=== PATIENT | female | born 1995 | race African-American/Black ===

== ENCOUNTER → 2021-02-23 16:07 | Outpatient (CLI) | payer OTHER, SELFPAY ==
--- NOTE | 2021-02-23 | DI.US.S_ITS ---
PROCEDURE: US OB <= 14 WEEKS FETUS INDICATIONS: Size and Dates OUTSIDE/PRIOR DATING DATA: Last menstrual period (LMP): 12/22/2020 LMP-based estimated date of delivery (RODRIGO): 09/28/2021. First dating scan (date and location): 02/23/2021. Estimated date of delivery (RODRIGO) from first dating scan: 07/21/2021. TECHNIQUE: Real-time scanning was performed of the fetus and maternal pelvic organs, with image documentation. Endovaginal scanning was also performed to better visualize the fetus and maternal ovaries. COMPARISON: None. FINDINGS: Embryo: Selz-rump length measures 3.3 cm corresponding to 10 weeks 1 day. Heart rate measures 173 beats per minute. Measurement variability in dating: +/- 4 weeks by LMP, +/- 7 days by mean sac diameter (use before 6 weeks gestation if crown-rump length not able to be measured), +/- 5 days by crown-rump length (up to 8 weeks 6 days gestation), +/- 7 days by crown-rump length (up to 13 weeks 6 days gestation). Maternal organs: Left ovary not visualized. Right ovary within normal limits. IMPRESSION: 10 week 1 day single living IUP. Dictated by: Javier Lassiter RRA Interpreted: Lorri Cruz MD on 02/23/2021 at 16:43 Transcribed by: TENA on 02/23/2021 at 16:44 Approved by: Lorri Cruz M.D. on 02/23/2021 at 17:08
== END ==
PROVIDERS: PCP Family Medicine; Referring Provider Family Medicine; Visit Provider Family Medicine
DX: Z36.87 Encounter for antenatal screening for uncertain dates (principal); Z3A.10 10 weeks gestation of pregnancy
CPT/HCPCS: 76801

== ENCOUNTER → 2021-05-03 14:09 | Outpatient (CLI) | payer OTHER, SELFPAY ==
--- NOTE | 2021-05-03 | DI.US.S_ITS ---
PROCEDURE: US OB >= 14 WEEKS FETUS INDICATIONS: 20 WEEK ANATOMY SURVEY OUTSIDE/PRIOR DATING DATA: Last menstrual period (LMP): 12/22/2020. LMP-based estimated date of delivery (RDORIGO): 09/28/2021 . First dating scan (date and location): 02/23/2021 . Estimated date of delivery (RODRIGO) from first dating scan: 1 09/20/2021 . TECHNIQUE: Real-time scanning was performed of the fetus, with image documentation and biometric measurements. Endovaginal scanning: No COMPARISON: [facility], OB <= 14 WEEKS FETUS, 02/23/2021, 15:24. FINDINGS: General: A single living intrauterine gestation is present. Presentation: Vertex. Placenta: Placental position is posterior , without previa. Amniotic fluid index: 9.6 cm, normal range is 5-24 cm. heart rate: 163 beats per minute. Maternal cervical canal: 3.5 cm long. Normal lower limit is 2.5 cm. biometrics: Biparietal diameter: 19 weeks 4 days Head circumference: 19 weeks 4 days Abdominal circumference: 19 weeks 2 days Femur length: 18 weeks 5 days Estimated gestational age from initial scan: 20 weeks Composite gestational age from present scan: 19 weeks 2 Estimated weight and percentile: 273 g, 8th percentile Measurement variability for biometric dating: +/- 7 days from 14 weeks to 15 weeks 6 days gestation, +/- 10 days from 16 weeks to 21 weeks 6 days gestation, +/- 2 weeks from 22 weeks to 27 weeks 6 days gestation, +/- 3 weeks for 28 weeks gestation or later. weight reference: 4500 g or EFW >90/95% is considered macrosomia or large for gestational age. EFW <10% is small for gestational age. EFW 5% or less is considered intra-uterine growth restriction. Anatomic survey: Neuro: Ventricles are non-dilated at less than 10 mm. Cisterna magna is normal at 3-11 mm. Cerebellum is normal in size and morphology. Nuchal skin fold: Normal at less than 6 mm between 14-21 weeks gestational age. Face: Nose and lips, facial profile are normal. Spine: No evidence for spina bifida. Heart: 4-chambered heart is present, with normal ventricular outflow tracts. Diaphragm: Diaphragm is intact. Stomach: Left-sided stomach is present. Kidneys: No hydronephrosis. Normal is less than 5 mm in 2nd trimester, less than 7 mm in 3rd trimester. Cord: 3-vessel cord has orthotopic insertion. Bladder: Normal in size. Extremities: All 4 extremities identified. IMPRESSION: 1. Single living IUP redemonstrated and interval growth is less than expected with estimated weight at the 8th percentile for age. Follow-up recommended. 2. Normal anatomic survey. Dictated by: Javier Lassiter [facility] Interpreted: Chuck Pretty MD on 05/03/2021 at 15:26 Transcribed by: DONNELL on 05/03/2021 at 15:27 Approved by: Chuck Pretty M.D. on 05/03/2021 at 16:50
== END ==
PROVIDERS: Referring Provider Nurse Practitioner Obstetrics & Gynecology; Visit Provider Nurse Practitioner Obstetrics & Gynecology
DX: Z36.89 Encounter for other specified antenatal screening (principal); Z3A.19 19 weeks gestation of pregnancy
CPT/HCPCS: 76811

== ENCOUNTER → 2021-06-08 16:17 | Outpatient (CLI) | payer OTHER, SELFPAY ==
--- NOTE | 2021-06-08 | DI.US.S_ITS ---
PROCEDURE: US OB LIMITED INDICATIONS: SIZE LESS THAN DATES OUTSIDE/PRIOR DATING DATA: Last menstrual period (LMP): December 22, 2020 . LMP-based estimated date of delivery (RODRIGO): September 28, 2021. First dating scan (date and location): February 23, 2021 . Estimated date of delivery (RODRIGO) from first dating scan: September 20, 2021 . TECHNIQUE: Real-time scanning was performed of the fetus, with image documentation and biometric measurements. Endovaginal scanning: Not perform COMPARISON: None. FINDINGS: General: A single living intrauterine gestation is present. Presentation: Breech. Placenta: Placental position is posterior , without previa. Amniotic fluid index: 11.3 cm, normal range is 5-24 cm. heart rate: 163 beats per minute. Maternal cervical canal: 3.6 cm long. Normal lower limit is 2.5 cm. biometrics: Biparietal diameter: 5.6 cm, correlating with 23 weeks and 1 day Head circumference: 22.0 cm, correlating with 24 weeks and 0 days Abdominal circumference: 18.1 cm, correlating with 23 weeks and 0 days Femur length: 4.0 cm, correlating with 22 weeks and 6 days Composite gestational age from present scan: 23 weeks and 2 days versus 25 weeks and 1 day by initial ultrasound Estimated weight and percentile: [address] the fetus within the 1st percentile. Measurement variability for biometric dating: +/- 7 days from 14 weeks to 15 weeks 6 days gestation, +/- 10 days from 16 weeks to 21 weeks 6 days gestation, +/- 2 weeks from 22 weeks to 27 weeks 6 days gestation, +/- 3 weeks for 28 weeks gestation or later. weight reference: 4500 g or EFW >90/95% is considered macrosomia or large for gestational age. EFW <10% is small for gestational age. EFW 5% or less is considered intra-uterine growth restriction. Other: Limited evaluation of the anatomic structures appear unremarkable. Umbilical artery the S/D ratios measure within normal limits for gestational age with slight decreased in diastolic flow waveforms near cord insertion. IMPRESSION: 1. Single living intrauterine gestation with estimated sonographic gestational age of approximately 23 weeks 2 days versus approximately 25 weeks and 1 day based off initial ultrasound dating. 2. Estimated weight of 556 g which correlates with the 1st percentile based off gestational age. 3. S/D ratios measure within normal limits for gestational age with decreased diastolic flow waveform seen near the cord insertion. Recommend continued close clinical and imaging surveillance. Dictated by: Hao Nicole M.D. on 06/08/2021 at 20:09 Approved by: Hao Nicole M.D. on 06/08/2021 at 20:23
--- NOTE | 2021-12-10 10:59 | P.HPOB_ITS ---
OB HPI Date/Time Date of admission: 12/10/21 Date Patient Seen: 12/10/21 Time Patient Seen: 10:00 History of Present Condition Chief complaint: SIZE LESS THAN DATES : 2 Para: 1 Narrative: Celso Briseno is a 26 year old female [facility] Medical History (Updated 12/01/21 @ 18:31 by Naz Renteria MD) Blood transfusion affecting Social History (Updated 10/29/21 @ 16:28 by Maribel Page RN) marital status: number of children: 0 household members: spouse lives independently: Yes caregiver/support person: No housing: house pets and animals: No education level: college occupational status: employed 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: always water heater temp set < 120 deg: Yes (Will check) working smoke detector in home: Yes fire extinguisher in home: Yes carbon monox detector in home: Yes firearms in home: No do you feel safe at home: Yes Smoking Status: Never smoker second hand exposure: No alcohol intake: former (stopped with ) substance use type: does not use during the past year weight has: remained stable well-balanced diet: daily or most days daily servings fruits/ve-4 caffeine: No Type(s) of exercise: walking frequency: 5-6 times per week additional social history: Patient was adopted doesn't know any family history Meds Home Medications and Allergies Home Medications Medication Instructions Recorded Confirmed Type vits no.60-ferrous 1 tab PO DAILY 07/19/21 11/19/21 History fumarate 27 mg iron-folic acid 1 mg tablet aspirin 81 mg chewable tablet 81 mg PO DAILY 10/29/21 11/19/21 History Allergies Allergy/AdvReac Type Severity Reaction Status Date / Time Latex, Natural Rubber AdvReac Verified 11/19/21 09:25
== END ==
PROVIDERS: Referring Provider Nurse Practitioner Obstetrics & Gynecology; Visit Provider Nurse Practitioner Obstetrics & Gynecology
DX: O26.843 Uterine size-date discrepancy, third trimester (principal); Z3A.25 25 weeks gestation of pregnancy
CPT/HCPCS: 76815

== ENCOUNTER 2021-07-19 08:34 | Inpatient (IN) | payer OTHER, SELFPAY ==
--- NOTE | 2021-07-19 08:43 | DI.US.S_ITS ---
PROCEDURE: US OB LIMITED INDICATIONS: BLEEDING; LOW HEART RATE OUTSIDE/PRIOR DATING DATA: Last menstrual period (LMP): 12/22/20 . LMP-based estimated date of delivery (RODRIGO): 09/28/21. First dating scan (date and location): 02/23/21 . Estimated date of delivery (RODRIGO) from first dating scan: 09/20/21 . TECHNIQUE: Real-time scanning was performed of the fetus, with image documentation. Endovaginal scanning: No COMPARISON: [facility], US OB LIMITED, 06/08/2021, 16:45. FINDINGS: Intrauterine gestation is present in vertex presentation. There is no cardiac activity detected. The posterior placenta is avascular. IMPRESSION: 1. demise at 31 weeks 0 days. 2. Results were given by the technologist to the care providers attending the patient. Dictated by: Scarlett Seals M.D. on 07/19/2021 at 9:25 Approved by: Scarlett Seals M.D. on 07/19/2021 at 9:37
--- NOTE | 2021-07-19 10:17 | P.HPOB_ITS ---
OB HPI Date/Time Date of admission: 07/19/21 Date Patient Seen: 07/19/21 Time Patient Seen: 10:17 History of Present Condition Chief complaint: Vaginal Bleeding with IUFD : 1 Para: 0 Estimated Date of Delivery: 09/26/21 Estimated Gestational Age (weeks): 30 Narrative: Celso Briseno is a 26 year old female @ [id number] by [facility] dating who came in for evaluation of mild cramping and vaginal bleeding. Passed one large clot this morning while going to the bathroom. Has continued to have small amounts of bleeding since. Feeling occasional mild cramping, more comfortable standing, than sitting. Thought she felt FM earlier this morning. No headache, vision changes, RUQ pain or edema. PN care w/ CNM complicated by SGA growth, was referred to [facility] who changed her due date and reported normal growth and dopplers @ 26wks. History of Present care: good care, initiated at week # (10) and number of visits (4 (+ MFM consult at 26 weeks)) Obstetrical complications: growth restriction (MFM consulted, dates adjusted and FGR not identified based on new dates) Medical complications: none Preadmission Labs Blood type: A (+) positive -: Antibody screen: negative, Cystic fibrosis screen: negative, GBS status: unknown, HBsAG: negative, HIV: negative and RPR/VDLR: negative -: Chlamydia screen: not detected and Gonorrhea screen: not detected -: Rubella: immune and Varicella: immune HCT: 31.9 HCAB: negative Cell-free DNA: Negative/male 1 hr GTT: 121 Evaluation Evaluation Cervical dilation (cm): 0 Cervical effacement (%): 50 station: -3 Comments: No cardiac activity by ultrasound Meds Home Medications and Allergies Home Medications Medication Instructions Recorded Confirmed Type ferrous sulfate 07/19/21 History vits no.60-ferrous tab 07/19/21 History fumarate 27 mg iron-folic acid 1 mg tablet Allergies Allergy/AdvReac Type Severity Reaction Status Date / Time Latex, Natural Rubber AdvReac Verified 07/19/21 10:53 Review of Systems Review of Systems ROS: Yes All systems reviewed with the patient and are negative except as otherwise documented Exam Vital Signs (past 8 hours): 151/94mmHg, HR 111bpm, T 36.6C Temporal Resp Auscultation: clear to auscultation bilaterally Cardio Rate: regular rate Rhythm: regular rhythm Heart Sounds: S1 normal and S2 normal Presentation: vertex Objective Labs Result Diagrams: 07/19/21 10:40 07/19/21 10:40 Assessment and Plan Assessment and Plan Assessment and Plan narrative: A: Intrauterine demise @ [id number] Anemia Elevated blood pressure without diagnosis of HTN Suspected abruption P: Admit with routine labs and preeclampsia panel. Consultation to OB/. Will treat and refer if pressures become severe range, though suspected to be elevated from stress/emotional state. Will continue to closely monitor BP and vaginal bleeding. IOL consent signed and oral misoprostil ordered, per 's recommended dosing. Time Spent with Patient Total time spent with greater than 50% in coordination of care (as documented) at patient's floor/unit and/or counseling patient:: Greater than 35 minutes
[2021-07-19 10:57] LABS: Add Manual Diff / Slide Review NO; Basophils Absolute Auto 100 /uL (0-100); Basophils Percent Auto 0.4 % (0-2); Eosinophils Absolute Auto 0 /uL (0-450); Eosinophils Percent Auto 0.2 % (2-4); Hematocrit 30.6 % (36-46); Hemoglobin 10.1 g/dL (12.0-16.0); Lymphocytes Absolute Auto 1600 /uL (1100-4500); Lymphocytes Percent Auto 9.4 % (25-40); Mean Corpuscular Hemoglobin 32.5 PG (26-34); Mean Corpuscular Volume 98.6 fL (80-100); Monocytes Absolute Auto 900 /uL (0-900); Monocytes Percent Auto 5.4 % (3-14); Neutrophils Absolute Auto 14000 /uL (1500-7000); Neutrophils Percent Auto 84.6 % (50-75); Platelet Count 147 X10^3/uL (150-400); Red Cell Distribution Width 12.9 % (11.6-14.8); White Blood Cell Count 16.6 X10^3/uL (4.5-11.0)
[2021-07-19] MEDS: miSOPROStoL 200 MCG TABLET 800 MCG PO ×3 (11:03→18:27)
[2021-07-19] MEDS: ACETAMINOPHEN 325 MG TABLET 975 MG PO (11:05)
[2021-07-19] MEDS: IBUPROFEN 600 MG TABLET PO (11:05)
[2021-07-19 11:09] LABS: Aspartate Aminotransferase 45 IU/L (14-36); Blood Urea Nitrogen 10 mg/dL (7-17); Estimated Glomerular Filt Rate > 60.0 mL/min (>60); Uric Acid 3.8 mg/dL (2.5-6.2)
--- NOTE | 2021-07-19 11:44 | PM.OBPNLAB ---
Date/Time Date Patient Seen: 07/19/21 Time Patient Seen: 11:44 Pain Control Pain control: other Comments: Celso is feeling steadily increasing cramping pain and pelvic pressure. Has partner and family at bedside for support. Pain not well managed, feeling discomfort with cramping. Patient preferred oral medication for pain management, tylenol and ibuprofen taken but patient vomited whole pills, along with misoprostil. Discussed alternative pain management options, she tried nitrous oxide without relief and has requested an epidural. Continues to have vaginal bleeding. No headache, vision changes, or RUQ pain. Dr. Renteria/OB backup notified and on standby if bleeding increases. VS: 149/92mmHg, HR 97bpm Pelvic Exam Dilation (cm): 0 Effacement (%): 50 station: -3 Comments: CE unchanged QBL 200 mL since admission Assessment and Plan Comments: A: Intrauterine demise @ [id number] Anemia Elevated blood pressure without diagnosis of HTN Suspected abruption P: Epidural anesthesia for pain management now, will discuss next steps after pain better controlled. IV zofran for nausea and repeat dose oral cytotec. Continue to monitor BP and bleeding. plans to reassess for possible need for hysterotomy in 1-2 hours.
[2021-07-19 11:49] LABS: COVID19 - ADMIT (NP swab/PCR) Negative (Negative)
[2021-07-19] MEDS: ONDANSETRON 4 MG/2 ML INJ IV ×2 (11:55→18:56)
[2021-07-19] MEDS: LACTATED RINGERS 1,000 ML 100 ML IV ×2 (11:58→16:20)
[2021-07-19] MEDS: FENT 2MCG/ML BUPIV 0.125% EPI 200 MCG/100 ML PLAST..BAG 10 MCG EPIDURAL ×2 (12:30→19:49)
[2021-07-19 16:24] LABS: Appearance Urine UA CLOUDY; Bilirubin Urine UA NEGATIVE (NEGATIVE); Color Urine UA YELLOW; Glucose Urine UA NEGATIVE (Negative); Ketones Urine UA TRACE (NEGATIVE); Leukocyte Esterase Urine UA NEGATIVE (NEGATIVE); Nitrite Urine UA NEGATIVE (Negative); Occult Blood Urine UA 3+ (Negative); Protein Urine UA 3+ (Negative); Specific Gravity Urine UA 1.025 (1.000-1.035); Urobilinogen Urine UA 0.2 E.U./dL (0.2)
[2021-07-19 16:37] LABS: Amorphous Sediment Urine 3+; Bacteria Urine Many (>30); Culture Indicated Urine Specimen Cultured; Mucus Urine 2+ (Negative); RBC Urine 5-10/HPF (0-5/HPF); Renal Epithelial Cells Urine 0-1/HPF (0-1/HPF); Squamous Epithelial Cell Urine 1-5 /HPF (0-5/HPF); WBC Urine 5-10/HPF (0-5/HPF)
[2021-07-19 17:48] LABS: Creatinine Urine Random 385.2 mg/dL; Protein (Total) Urine Random 1685 mg/dL (0-12); Protein Creatinine Ratio Urine 4.37 GRAM/24H
--- NOTE | 2021-07-19 18:51 | PM.OBPNLAB ---
Date/Time Date Patient Seen: 07/19/21 Time Patient Seen: 18:51 Pain Control Pain control: epidural (Has used PCEA twice with good relief) Comments: Celso remains comfortable and is coping well with family support. Vaginal bleeding is scant with cumulative QBL 313mL since admission. 2nd dose of cytotec given at 1830. VS: BP 151/98mmHg, HR 93bpm, T 36.7C Temporal Pelvic Exam Dilation (cm): 0 Effacement (%): 50 station: -3 Comments: CE unchanged Assessment and Plan Assessment: induction ongoing and other (Preeclampsia) Plan: continuous present management Comments: Consulted about steadily increasing BPs and reviewed labs with her. Labetalol and nifedipine ordered, per . Will continue PO cytotec and plan Now I lay Me Down to Sleep Photography and keepsake box after delivery.
[2021-07-19] MEDS: LABETALOL 100 MG TABLET 200 MG PO (18:56)
[2021-07-19] MEDS: NIFEdipine 30 MG TAB ER PO (18:56)
[2021-07-19 19:51] VITALS: BP 154/96
--- NOTE | 2021-07-19 20:54 | PM.PN.1 ---
Subjective Subjective Date Patient Seen: 07/19/21 Time Patient Seen: 20:54 Exam Vital Signs (past 8 hours): - BP 167/85mmHg, HR 89bpm, T 37.4C Temporal Objective Labs Result Diagrams: 07/19/21 10:40 07/19/21 10:40 Labs: Laboratory Results - last 24 hr 07/19/21 07/19/21 07/19/21 10:40 10:40 10:40 WBC 16.6 H RBC 3.10 L Hgb 10.1 L Hct 30.6 L MCV 98.6 MCH 32.5 MCHC 33.0 RDW 12.9 Plt Count 147 L Neut % (Auto) 84.6 H Lymph % (Auto) 9.4 L [place] % (Auto) 5.4 Eos % (Auto) 0.2 L Baso % (Auto) 0.4 Neut # (Auto) 48095 H Lymph # (Auto) 1600 [place] # (Auto) 900 Eos # (Auto) 0 Baso # (Auto) 100 BUN Creatinine Estimated GFR BUN/Creatinine Ratio Uric Acid AST Urine Color Urine Appearance Urine pH Ur Specific [place] Urine Protein Urine Glucose (UA) Urine Ketones Urine Occult Blood Urine Nitrate Urine Bilirubin Urine Urobilinogen Ur Leukocyte Esterase Urine RBC Urine WBC Ur Squamous Epith Cells Ur Renal Epithelial Cell Amorphous Sediment Urine Bacteria Urine Mucus Ur Culture Indicated? U Random Total Protein Urine Creatinine Protein/Creatinin Ratio SARS-CoV-2 (PCR) Negative Blood Type A Positive Antibody Screen Negative 07/19/21 07/19/21 07/19/21 10:40 16:05 16:05 WBC RBC Hgb Hct MCV MCH MCHC RDW Plt Count Neut % (Auto) Lymph % (Auto) [place] % (Auto) Eos % (Auto) Baso % (Auto) Neut # (Auto) Lymph # (Auto) [place] # (Auto) Eos # (Auto) Baso # (Auto) BUN 10 Creatinine 0.50 L Estimated GFR > 60.0 BUN/Creatinine Ratio 20.0 Uric Acid 3.8 AST 45 H Urine Color Yellow Urine Appearance Cloudy Urine pH 5.0 Ur Specific [place] 1.025 Urine Protein 3+ H Urine Glucose (UA) Negative Urine Ketones Trace H Urine Occult Blood 3+ H Urine Nitrate Negative Urine Bilirubin Negative Urine Urobilinogen 0.2 Ur Leukocyte Esterase Negative Urine RBC 5-10/hpf H Urine WBC 5-10/hpf H Ur Squamous Epith Cells 1-5 /hpf Ur Renal Epithelial Cell 0-1/hpf Amorphous Sediment 3+ Urine Bacteria Many (>30) H Urine Mucus 2+ H Ur Culture Indicated? Specimen cultured U Random Total Protein 1685 H Urine Creatinine 385.2 Protein/Creatinin Ratio 4.37 SARS-CoV-2 (PCR) Blood Type Antibody Screen PFSH Social History Smoking Status: Never smoker Assessment & Plan Time Spent With Patient Critical Care time: I spent a total of [] minutes of critical care time on this patient's care today; this time is exclusive of procedural time.
[2021-07-19 21:04] VITALS: BP 156/87; PULSE 100
[2021-07-19] MEDS: HYDRALAZINE 20 MG/ML VIAL 5 MG IV (21:04)
[2021-07-19 21:24] LABS: Add Manual Diff / Slide Review NO; Basophils Absolute Auto 0 /uL (0-100); Basophils Percent Auto 0.2 % (0-2); Eosinophils Absolute Auto 0 /uL (0-450); Eosinophils Percent Auto 0.1 % (2-4); Hematocrit 23.6 % (36-46); Hemoglobin 7.8 g/dL (12.0-16.0); Lymphocytes Absolute Auto 1400 /uL (1100-4500); Lymphocytes Percent Auto 7.9 % (25-40); Mean Corpuscular HGB Conc 33.2 % (30-36); Mean Corpuscular Hemoglobin 32.6 PG (26-34); Mean Corpuscular Volume 98.3 fL (80-100); Monocytes Absolute Auto 1100 /uL (0-900); Neutrophils Absolute Auto 15300 /uL (1500-7000); Neutrophils Percent Auto 85.8 % (50-75); Platelet Count 107 X10^3/uL (150-400); Red Blood Cell Count 2.41 X10^6/uL (4.0-5.2); Red Cell Distribution Width 12.8 % (11.6-14.8); White Blood Cell Count 17.8 X10^3/uL (4.5-11.0)
[2021-07-19 21:28] LABS: Bilirubin Urine UA NEGATIVE (NEGATIVE); Color Urine UA YELLOW; Glucose Urine UA NEGATIVE (Negative); Ketones Urine UA NEGATIVE (NEGATIVE); Leukocyte Esterase Urine UA NEGATIVE (NEGATIVE); Nitrite Urine UA NEGATIVE (Negative); Occult Blood Urine UA 3+ (Negative); Protein Urine UA 2+ (Negative); Urobilinogen Urine UA 0.2 E.U./dL (0.2)
[2021-07-19 21:37] LABS: pH Urine UA 5.5 (4.5-8.0)
[2021-07-19 21:38] LABS: Amorphous Sediment Urine 2+; Appearance Urine UA CLOUDY; RBC Urine 10-30/HPF (0-5/HPF); WBC Urine 5-10/HPF (0-5/HPF)
[2021-07-19 21:39] LABS: Bacteria Urine Few (2-10); Culture Indicated Urine Cult Not Indicated; Granular Casts Urine 0-1/LPF; Hyaline Casts Urine 0-1/LPF; Mucus Urine 1+ (Negative); Squamous Epithelial Cell Urine 1-5 /HPF (0-5/HPF)
[2021-07-19 21:51] LABS: Aspartate Aminotransferase 66 IU/L (14-36); BUN Creatinine Ratio 17.2 (6-22); Blood Urea Nitrogen 11 mg/dL (7-17); Estimated Glomerular Filt Rate > 60.0 mL/min (>60)
[2021-07-19 21:52] LABS: Creatinine Urine Random 101.1 mg/dL
[2021-07-19] MEDS: MAGNESIUM SULFATE 4 GM/100 ML PIGGYBACK IV (21:58)
[2021-07-19 21:59] LABS: Protein (Total) Urine Random 313 mg/dL (0-12); Protein Creatinine Ratio Urine 3.09 GRAM/24H
--- NOTE | 2021-07-19 22:12 | P.PN_ITS ---
Subjective Subjective Date Patient Seen: 07/19/21 Time Patient Seen: 21:00 Interval history: Consulted with severe range BPs. Hydralazine 5mg IV given with good response. Repeat preeclampsia panel sent. Vaginal bleeding remains minimal. Celso remains comfortable with continuous epidural. Continues to deny headache and vision changes. Exam Vital Signs (past 8 hours): - 07/19/21 19:51 07/19/21 21:04 Pulse Rate 100 H Blood Pressure 154/96 H 156/87 H 2204: BP 134/71mmHg, HR 122bpm, T 37.4C Temporal Other: scant vaginal bleeding Objective Labs Result Diagrams: 07/19/21 21:17 07/19/21 21:17 Labs: Laboratory Results - last 24 hr 07/19/21 07/19/21 07/19/21 10:40 10:40 10:40 WBC 16.6 H RBC 3.10 L Hgb 10.1 L Hct 30.6 L MCV 98.6 MCH 32.5 MCHC 33.0 RDW 12.9 Plt Count 147 L Neut % (Auto) 84.6 H Lymph % (Auto) 9.4 L [place] % (Auto) 5.4 Eos % (Auto) 0.2 L Baso % (Auto) 0.4 Neut # (Auto) 80748 H Lymph # (Auto) 1600 [place] # (Auto) 900 Eos # (Auto) 0 Baso # (Auto) 100 BUN Creatinine Estimated GFR BUN/Creatinine Ratio Uric Acid AST Urine Color Urine Appearance Urine pH Ur Specific [place] Urine Protein Urine Glucose (UA) Urine Ketones Urine Occult Blood Urine Nitrate Urine Bilirubin Urine Urobilinogen Ur Leukocyte Esterase Urine RBC Urine WBC Ur Squamous Epith Cells Ur Renal Epithelial Cell Amorphous Sediment Urine Bacteria Hyaline Casts Granular Casts Urine Mucus Ur Culture Indicated? U Random Total Protein Urine Creatinine Protein/Creatinin Ratio SARS-CoV-2 (PCR) Negative Blood Type A Positive Antibody Screen Negative Crossmatch See Detail 07/19/21 07/19/21 07/19/21 10:40 16:05 16:05 WBC RBC Hgb Hct MCV MCH MCHC RDW Plt Count Neut % (Auto) Lymph % (Auto) [place] % (Auto) Eos % (Auto) Baso % (Auto) Neut # (Auto) Lymph # (Auto) [place] # (Auto) Eos # (Auto) Baso # (Auto) BUN 10 Creatinine 0.50 L Estimated GFR > 60.0 BUN/Creatinine Ratio 20.0 Uric Acid 3.8 AST 45 H Urine Color Yellow Urine Appearance Cloudy Urine pH 5.0 Ur Specific [place] 1.025 Urine Protein 3+ H Urine Glucose (UA) Negative Urine Ketones Trace H Urine Occult Blood 3+ H Urine Nitrate Negative Urine Bilirubin Negative Urine Urobilinogen 0.2 Ur Leukocyte Esterase Negative Urine RBC 5-10/hpf H Urine WBC 5-10/hpf H Ur Squamous Epith Cells 1-5 /hpf Ur Renal Epithelial Cell 0-1/hpf Amorphous Sediment 3+ Urine Bacteria Many (>30) H Hyaline Casts Granular Casts Urine Mucus 2+ H Ur Culture Indicated? Specimen cultured U Random Total Protein 1685 H Urine Creatinine 385.2 Protein/Creatinin Ratio 4.37 SARS-CoV-2 (PCR) Blood Type Antibody Screen Crossmatch 07/19/21 07/19/21 07/19/21 21:15 21:15 21:17 WBC 17.8 H RBC 2.41 L Hgb 7.8 L Hct 23.6 L MCV 98.3 MCH 32.6 MCHC 33.2 RDW 12.8 Plt Count 107 L Neut % (Auto) 85.8 H Lymph % (Auto) 7.9 L [place] % (Auto) 6.0 Eos % (Auto) 0.1 L Baso % (Auto) 0.2 Neut # (Auto) 93043 H Lymph # (Auto) 1400 [place] # (Auto) 1100 H Eos # (Auto) 0 Baso # (Auto) 0 BUN Creatinine Estimated GFR BUN/Creatinine Ratio Uric Acid AST Urine Color Yellow Urine Appearance Cloudy Urine pH 5.5 Ur Specific [place] 1.020 Urine Protein 2+ H Urine Glucose (UA) Negative Urine Ketones Negative Urine Occult Blood 3+ H Urine Nitrate Negative Urine Bilirubin Negative Urine Urobilinogen 0.2 Ur Leukocyte Esterase Negative Urine RBC 10-30/hpf H Urine WBC 5-10/hpf H Ur Squamous Epith Cells 1-5 /hpf Ur Renal Epithelial Cell Amorphous Sediment 2+ Urine Bacteria Few (2-10) H D Hyaline Casts 0-1/lpf Granular Casts 0-1/lpf Urine Mucus 1+ H Ur Culture Indicated? Cult not indicated U Random Total Protein 313 H Urine Creatinine 101.1 Protein/Creatinin Ratio 3.09 SARS-CoV-2 (PCR) Blood Type Antibody Screen Crossmatch 07/19/21 21:17 WBC RBC Hgb Hct MCV MCH MCHC RDW Plt Count Neut % (Auto) Lymph % (Auto) [place] % (Auto) Eos % (Auto) Baso % (Auto) Neut # (Auto) Lymph # (Auto) [place] # (Auto) Eos # (Auto) Baso # (Auto) BUN 11 Creatinine 0.64 Estimated GFR > 60.0 BUN/Creatinine Ratio 17.2 Uric Acid 4.0 AST 66 H Urine Color Urine Appearance Urine pH Ur Specific [place] Urine Protein Urine Glucose (UA) Urine Ketones Urine Occult Blood Urine Nitrate Urine Bilirubin Urine Urobilinogen Ur Leukocyte Esterase Urine RBC Urine WBC Ur Squamous Epith Cells Ur Renal Epithelial Cell Amorphous Sediment Urine Bacteria Hyaline Casts Granular Casts Urine Mucus Ur Culture Indicated? U Random Total Protein Urine Creatinine Protein/Creatinin Ratio SARS-CoV-2 (PCR) Blood Type Antibody Screen Crossmatch [facility] Social History Smoking Status: Never smoker Assessment & Plan Assessment and plan (1) Severe preeclampsia: Status: Acute Plan: Start MgSO4 4gm bolus and 2gm/hr maintenance. Mg level Q 6 hours. Counseled Celso on this diagnosis and what to expect with MgSO4. Will continue to monitor BPs closely. (2) demise in nash greater than 22 weeks gestation, antepartum: Status: Acute Plan: Per , repeat CBC @ 2330 and will deliver surgical if Hct continues to drop. Type & crossmatch 3 units of blood ordered. Requested platelets, but due to shortage they are unavailable to standby. Continuous care from [id number]. Time Spent With Patient Critical Care time: I spent a total of [] minutes of critical care time on this patient's care today; this time is exclusive of procedural time.
[2021-07-19] MEDS: MAGNESIUM SULFATE 20 GM/500 ML IV.SOLN IV (22:24)
[2021-07-19 23:56] LABS: Add Manual Diff / Slide Review NO; Basophils Absolute Auto 100 /uL (0-100); Basophils Percent Auto 0.4 % (0-2); Eosinophils Absolute Auto 0 /uL (0-450); Eosinophils Percent Auto 0.1 % (2-4); Hematocrit 23.9 % (36-46); Hemoglobin 7.9 g/dL (12.0-16.0); Lymphocytes Absolute Auto 1400 /uL (1100-4500); Lymphocytes Percent Auto 8.3 % (25-40); Mean Corpuscular Hemoglobin 32.8 PG (26-34); Mean Corpuscular Volume 99.4 fL (80-100); Monocytes Absolute Auto 800 /uL (0-900); Monocytes Percent Auto 4.9 % (3-14); Neutrophils Absolute Auto 14100 /uL (1500-7000); Neutrophils Percent Auto 86.3 % (50-75); Platelet Count 104 X10^3/uL (150-400); Red Blood Cell Count 2.41 X10^6/uL (4.0-5.2); Red Cell Distribution Width 12.9 % (11.6-14.8); White Blood Cell Count 16.3 X10^3/uL (4.5-11.0)
[2021-07-20] MEDS: miSOPROStoL 200 MCG TABLET 800 MCG PO ×3 (00:18→12:21)
[2021-07-20 04:20] LABS: Add Manual Diff / Slide Review NO; Basophils Absolute Auto 0 /uL (0-100); Basophils Percent Auto 0.3 % (0-2); Eosinophils Absolute Auto 0 /uL (0-450); Eosinophils Percent Auto 0.1 % (2-4); Hematocrit 24.9 % (36-46); Hemoglobin 8.2 g/dL (12.0-16.0); Lymphocytes Absolute Auto 1400 /uL (1100-4500); Mean Corpuscular Hemoglobin 32.6 PG (26-34); Mean Corpuscular Volume 98.8 fL (80-100); Monocytes Absolute Auto 1100 /uL (0-900); Monocytes Percent Auto 6.5 % (3-14); Neutrophils Absolute Auto 14600 /uL (1500-7000); Neutrophils Percent Auto 85.1 % (50-75); Platelet Count 118 X10^3/uL (150-400); Red Blood Cell Count 2.52 X10^6/uL (4.0-5.2); Red Cell Distribution Width 12.7 % (11.6-14.8); White Blood Cell Count 17.1 X10^3/uL (4.5-11.0)
[2021-07-20 04:30] LABS: Aspartate Aminotransferase 68 IU/L (14-36); BUN Creatinine Ratio 17.5 (6-22); Blood Urea Nitrogen 11 mg/dL (7-17); Estimated Glomerular Filt Rate > 60.0 mL/min (>60); Uric Acid 4.2 mg/dL (2.5-6.2)
[2021-07-20 04:42] LABS: Magnesium 6.2 mg/dL (1.6-2.3)
[2021-07-20] MEDS: FENT 2MCG/ML BUPIV 0.125% EPI 200 MCG/100 ML PLAST..BAG 10 MCG EPIDURAL ×3 (05:01→19:37)
--- NOTE | 2021-07-20 07:04 | PM.OBPNLAB ---
Date/Time Date Patient Seen: 07/20/21 Time Patient Seen: 04:30 Pain Control Pain control: epidural (coping well) Comments: Celso has been able to sleep through the night. Continues to deny headache and vision changes. Urine output has increased, vaginal bleeding remains scant and labs are stable with therapeutic Mg level. BP: 122/70mmHg, HR 111bpm, RR 16/min, T 36.7C Temporal Pelvic Exam Dilation (cm): 1 Effacement (%): 75 station: -3 Assessment and Plan Assessment: induction ongoing and other (Severe preeclampsia) Plan: continuous present management Comments: Continue cytotec Q6 hours. Repeat Mg level and preeclampsia panel Q6 hours. Will continue to monitor closely and consult OB, PRN.
[2021-07-20] MEDS: ONDANSETRON 4 MG/2 ML INJ IV ×2 (07:38→12:58)
[2021-07-20] MEDS: MAGNESIUM SULFATE 20 GM/500 ML IV.SOLN IV ×2 (08:33→18:14)
[2021-07-20] MEDS: LACTATED RINGERS 1,000 ML 100 ML IV ×2 (09:23→18:14)
--- NOTE | 2021-07-20 10:08 | PM.OBPNLAB ---
Date/Time Date Patient Seen: 07/20/21 Time Patient Seen: 10:09 Pain Control Pain control: epidural (tolerating well) Comments: has been able to rest comfortably and is agreeable to nguyen bulb placement, vaginal bleeding continues to be scant, denies neurologic symptoms. Partner at bedside and supportive. VS: BP 131/74 HR 108 T36.8 Pelvic Exam Dilation (cm): 1 Effacement (%): 60 station: -2 Comments: nguyen bulb placed manually and inflated with 60ml sterile water Contractions Date/Time contractions began: 4th dose of misoprostil given at 0640 Assessment and Plan Comments: Medical care transfered to Dr Jonas to manage BP and meds, CNM to continue labor management. Celso counseled on current plan and agreeable to co-management of care with Dr Jonas.
[2021-07-20 10:18] LABS: Add Manual Diff / Slide Review NO; Basophils Absolute Auto 0 /uL (0-100); Basophils Percent Auto 0.3 % (0-2); Eosinophils Absolute Auto 0 /uL (0-450); Eosinophils Percent Auto 0.1 % (2-4); Hematocrit 25.2 % (36-46); Hemoglobin 8.4 g/dL (12.0-16.0); Lymphocytes Absolute Auto 1300 /uL (1100-4500); Lymphocytes Percent Auto 6.8 % (25-40); Mean Corpuscular HGB Conc 33.3 % (30-36); Mean Corpuscular Volume 99.1 fL (80-100); Monocytes Absolute Auto 1200 /uL (0-900); Monocytes Percent Auto 6.2 % (3-14); Neutrophils Absolute Auto 16000 /uL (1500-7000); Neutrophils Percent Auto 86.6 % (50-75); Platelet Count 116 X10^3/uL (150-400); Red Blood Cell Count 2.55 X10^6/uL (4.0-5.2); Red Cell Distribution Width 12.8 % (11.6-14.8); White Blood Cell Count 18.5 X10^3/uL (4.5-11.0)
[2021-07-20 10:29] LABS: Aspartate Aminotransferase 63 IU/L (14-36); Blood Urea Nitrogen 11 mg/dL (7-17); Estimated Glomerular Filt Rate > 60.0 mL/min (>60); Uric Acid 4.1 mg/dL (2.5-6.2)
[2021-07-20 10:31] LABS: Magnesium 6.8 mg/dL (1.6-2.3)
--- NOTE | 2021-07-20 13:54 | PM.OBPNLAB ---
Date/Time Date Patient Seen: 07/20/21 Time Patient Seen: 13:30 Pain Control Pain control: epidural (replaced by anesthesia at this time) Pelvic Exam Dilation (cm): 4 Effacement (%): 75 station: -2 Comments: BBOW [place] balloon removed during exam Scant dark bleeding noted Assessment and Plan Assessment: induction ongoing Plan: continuous present management (Continue cytotec Q6 hours) Comments: Reassess in 4 hours or sooner, PRN
--- NOTE | 2021-07-20 17:31 | PM.OBPNLAB ---
Date/Time Date Patient Seen: 07/20/21 Time Patient Seen: 17:31 Pain Control Pain control: epidural Comments: Remains comfortable with PCEA use. VS: 143/88mmHg, HR 105bpm, RR 20/min, T 37.4C Pelvic Exam Dilation (cm): 4 Effacement (%): 75 station: -2 Amniotic membrane status: Ruptured (AROM) Comments: AROM, small amount of clear, blood tinged fluid Assessment and Plan Assessment: induction ongoing Plan: begin patient augmentation Comments: IOL progress reviewed with . AROM and pitocin started, per 's recommendation and Celso's consent. Reassess in 4 hours or sooner, PRN.
[2021-07-20] MEDS: OXYTOCIN PREMIX 30 UNIT/500 ML PLAST..BAG IV (17:46)
--- NOTE | 2021-07-21 00:47 | PM.OBPRVD ---
Events: Other (Perigestational hemorrhage, Intrauterine demise) Labor & Delivery Delivery date: 07/21/21 Intrapartal Events: Severe Preeclampsia Cervical ripening method: per misoprostal protocol (then Parisi balloon) Induction method: AROM Delivery augmentation: pitocin Delivery monitor: external uterine Route of delivery: Episiotomy description: None L&D Laceration Description: None Estimated blood loss (mL): 100 Anesthesia Type: Epidural Narrative: Celso reported rectal pressure with CE C/C/+2. With coaching and encouragement she steadily brought the head to . NSVB of a stillborn baby boy in RAMONA position over an intact perineum. Epidural anesthesia was adequate throughout the . There was no nuchal cord and the shoulders delivered easily. [place] was placed on a blanket. The cord was double clamped and cut by CNM. Remaining 30 units of pitocin in 500mL LR was increased to 300mL/hr for active management of third stage. Gentle cord traction was followed immediately by spontaneous, Schultze delivery of an intact placenta, membranes and 3VC. Fundus immediately firm and bleeding minimal. EBL 100mL. Baby was swaddled and placed in Jember's arms. Placenta to pathology. [place] Baby 1: Infant gender: Male Presentation: vertex Position: Right Occiput Anterior Placenta delivery description: Spontaneous Cord Vessel Description: 3 Vessels weight: 1.429 kg Narrative: known demise Plan for aftercare: Other ( management by OB/)
[2021-07-21] MEDS: KETOROLAC 30 MG/ML VIAL IV (01:19)
[2021-07-21] MEDS: ACETAMINOPHEN 325 MG TABLET 650 MG PO ×4 (01:20→18:54)
[2021-07-21 01:37] LABS: Magnesium 6.4 mg/dL (1.6-2.3)
[2021-07-21] MEDS: LOPERAMIDE 2 MG CAPSULE 4 MG PO (01:47)
[2021-07-21] MEDS: TRANEXAMIC ACID 1,000 MG in SODIUM CHLORIDE 0.9% 100 ML 200 ML IV (01:54)
[2021-07-21] MEDS: LACTATED RINGERS 1,000 ML 100 ML IV ×2 (05:31→15:46)
[2021-07-21] MEDS: MAGNESIUM SULFATE 20 GM/500 ML IV.SOLN IV ×2 (05:36→15:59)
[2021-07-21] MEDS: IBUPROFEN 600 MG TABLET PO ×3 (06:17→18:54)
[2021-07-21 06:35] LABS: Add Manual Diff / Slide Review NO; Basophils Absolute Auto 0 /uL (0-100); Eosinophils Absolute Auto 100 /uL (0-450); Eosinophils Percent Auto 0.3 % (2-4); Hemoglobin 7.7 g/dL (12.0-16.0); Lymphocytes Absolute Auto 1500 /uL (1100-4500); Lymphocytes Percent Auto 7.4 % (25-40); Mean Corpuscular HGB Conc 33.5 % (30-36); Mean Corpuscular Hemoglobin 32.9 PG (26-34); Mean Corpuscular Volume 98.2 fL (80-100); Monocytes Absolute Auto 1400 /uL (0-900); Monocytes Percent Auto 6.7 % (3-14); Neutrophils Absolute Auto 17400 /uL (1500-7000); Neutrophils Percent Auto 85.6 % (50-75); Platelet Count 115 X10^3/uL (150-400); Red Blood Cell Count 2.34 X10^6/uL (4.0-5.2); White Blood Cell Count 20.4 X10^3/uL (4.5-11.0)
[2021-07-21 06:51] LABS: Magnesium 6.9 mg/dL (1.6-2.3)
--- NOTE | 2021-07-21 08:13 | PATH_ITS ---
[facility] Accession Number: [id number] . 01 Material submitted: . placenta - PLACENTA . 02 Diagnosis: Placenta (266 grams): Three vessel umbilical cord with no evidence of funsitis. membranes with deciduitis; no evidence of chorioamnionitis. Features of maternal hypertensive vasculopathy not identified. No evidence of neoplasm. [facility] 07/25/2021 1558 Local . 02 Electronically signed: . Niranjan Mcdaniel MD, PhD, Pathologist NPI- [id number] . 01 Gross description: . The specimen is received in formalin, labeled placenta and consists of a 266-gram placenta measuring 14.0 x 13.0 x 3.5 cm. The cee, eccentrically inserted umbilical cord measures 43 cm in length by 1.2 cm in diameter and displays three vessels on cut surface. The cee-pink translucent membranes attach at the disc margin and the point of rupture is located 0.5 cm from the nearest margin. The cotyledons are intact and sectioned to reveal pink-red cut surfaces. Exhauster Engineer sections are submitted. Also received within the specimen container is a 9.0 x 6.0 x 3.0 cm portion of clotted blood. . A1: Umbilical cord. A2: Membrane rolls. A3-A4: Full thickness placental cross sections. A5: Maternal surface wedge sections. (EA:[id number]) /MRV 07/24/2021 1302 Local . 02 Pathologist provided ICD-10: O14.10 . 02 CPT . 283514 Performed at: 01 [facility] [address] [place] [address], [place], [place] [id number] MD Altaf Gomez MD Phone: [phone] Performed at: 02 [facility] [address] [place] [id number] MD Cate Pradhan MD Phone: [phone]
--- NOTE | 2021-07-21 09:32 | PM.CN ---
History of Present Illness Consult details Date Patient Seen: 07/21/21 Time Patient Seen: 09:32 Chief complaint: Vaginal Bleeding with IUFD Reason for consult: Severe preeclampsia Requesting provider: Teresa He Narrative: Patient is a 26-year-old 1 now para 1 status post vaginal delivery of a intrauterine demise, male at 30 weeks gestation. Initially it was presumed abruption but patient began developing evidence of severe preeclampsia and was started on magnesium sulfate. Patient has significantly labile blood pressures and initially was treated with labetalol, nifedipine. Patient received an epidural catheter for pain control and blood pressures did not warrant further antihypertensive medication. Patient initially was anemic but remained stable with stable platelet count even . After delivery no specific evidence for cause for demise seen. There was no nuchal cord or knot in the cord. Amniotic fluid was pink tinge and although the patient presented with vaginal bleeding no evidence for abruption. Patient had had a cell free DNA that showed a normal male. She had been evaluated by Maternal Medicine at 26 weeks for SGA infant and at that time was found to have normal Dopplers and they changed her due date. She was to follow-up in 1 month for evaluation of growth however the demise happened before that follow-up appointment. Meds Home Medications and Allergies Home Medications Medication Instructions Recorded Confirmed Type ferrous sulfate 07/19/21 History vits no.60-ferrous tab 07/19/21 History fumarate 27 mg iron-folic acid 1 mg tablet Allergies Allergy/AdvReac Type Severity Reaction Status Date / Time Latex, Natural Rubber AdvReac Verified 07/19/21 10:53 Review of Systems Review of Systems Narrative: Patient denies headaches, scotomata, epigastric pain. She is feeling fatigued from the magnesium but is able to ambulate. She is urinating well. Mild bleeding. Exam Vital Signs (past 8 hours): Blood pressures ranging from 155/96 to 124/77 with the majority of blood pressures in the low 90 to high 80 diastolic. No systolics over 155. Patient's temperature 36.4?. Excellent urine output. Narrative Exam Narrative: Patient is sitting up at the side of the bed in no apparent distress. No significant edema of the legs. Objective Labs Result Diagrams: 07/21/21 06:13 07/20/21 10:12 Labs: Laboratory Results - last 24 hr 07/20/21 07/20/21 07/20/21 10:12 10:12 18:09 WBC 18.5 H RBC 2.55 L Hgb 8.4 L Hct 25.2 L MCV 99.1 MCH 33.0 MCHC 33.3 RDW 12.8 Plt Count 116 L Neut % (Auto) 86.6 H Lymph % (Auto) 6.8 L [place] % (Auto) 6.2 Eos % (Auto) 0.1 L Baso % (Auto) 0.3 Neut # (Auto) 96899 H Lymph # (Auto) 1300 [place] # (Auto) 1200 H Eos # (Auto) 0 Baso # (Auto) 0 BUN 11 Creatinine 0.61 Estimated GFR > 60.0 BUN/Creatinine Ratio 18.0 Uric Acid 4.1 Magnesium 6.8 H* 7.0 H* AST 63 H 07/21/21 07/21/21 07/21/21 01:14 06:13 06:13 WBC 20.4 H RBC 2.34 L Hgb 7.7 L Hct 23.0 L MCV 98.2 MCH 32.9 MCHC 33.5 RDW 13.0 Plt Count 115 L Neut % (Auto) 85.6 H Lymph % (Auto) 7.4 L [place] % (Auto) 6.7 Eos % (Auto) 0.3 L Baso % (Auto) 0.0 Neut # (Auto) 80256 H Lymph # (Auto) 1500 [place] # (Auto) 1400 H Eos # (Auto) 100 Baso # (Auto) 0 BUN Creatinine Estimated GFR BUN/Creatinine Ratio Uric Acid Magnesium 6.4 H* 6.9 H* AST PFSH Social History marital status: number of children: 0 household members: spouse lives independently: Yes caregiver/support person: No education level: college occupational status: employed 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/hazards: No Tobacco & Substance Use Smoking Status: Never smoker Assessment & Plan Assessment and plan (1) demise in nash greater than 22 weeks gestation, antepartum: Status: Acute (2) Severe preeclampsia: Status: Acute (3) Anemia affecting : Status: Acute Assessment & Plan narrative: Agree with IV iron therapy for anemia. Continue magnesium sulfate until midnight tonight, 24 hours after delivery unless further severe preeclampsia symptoms develop. Placenta sent to pathology as well as order for Jett Garay. Due to the labile blood pressures will start the patient on labetalol 100 mg b.i.d. Time Spent With Patient Time with patient: less than 30 minutes Critical Care time: I spent a total of [] minutes of critical care time on this patient's care today; this time is exclusive of procedural time.
[2021-07-21] MEDS: LABETALOL 100 MG TABLET PO ×2 (10:10→21:50)
[2021-07-21] MEDS: IRON SUCROSE 200 MG in SODIUM CHLORIDE 0.9% 100 ML 220 ML IV (10:39)
[2021-07-21 16:15] LABS: Magnesium 6.7 mg/dL (1.6-2.3)
[2021-07-21 21:50] VITALS: BP 128/77; PULSE 104
[2021-07-22] VITALS (7 sets, daily range): BP systolic 133–141; BP diastolic 72–80; PULSE 88–97; RESP 11–12; TEMP 36.3–37
[2021-07-22] MEDS: IBUPROFEN 600 MG TABLET PO ×3 (01:16→14:28)
[2021-07-22] MEDS: ACETAMINOPHEN 325 MG TABLET 650 MG PO ×3 (01:16→13:44)
[2021-07-22 06:39] LABS: Alanine Aminotransferase 24 IU/L (<35); Albumin 2.3 g/dL (3.5-5.0); Alkaline Phosphatase 218 U/L (38-126); Aspartate Aminotransferase 30 IU/L (14-36); Bilirubin Unconjugated 0.1 mg/dL (0.0-1.1); Globulin 2.2 g/dL (1.7-4.1); HEMOLYSIS < 15 (0-50); Total Protein 4.5 g/dL (6.3-8.2)
[2021-07-22 06:41] LABS: Add Manual Diff / Slide Review NO; Basophils Absolute Auto 0 /uL (0-100); Basophils Percent Auto 0.1 % (0-2); Eosinophils Absolute Auto 100 /uL (0-450); Eosinophils Percent Auto 0.9 % (2-4); Lymphocytes Absolute Auto 1400 /uL (1100-4500); Lymphocytes Percent Auto 10.8 % (25-40); Mean Corpuscular HGB Conc 33.2 % (30-36); Mean Corpuscular Hemoglobin 32.9 PG (26-34); Mean Corpuscular Volume 99.2 fL (80-100); Monocytes Absolute Auto 800 /uL (0-900); Monocytes Percent Auto 6.5 % (3-14); Neutrophils Absolute Auto 10200 /uL (1500-7000); Neutrophils Percent Auto 81.7 % (50-75); Platelet Count 117 X10^3/uL (150-400); Red Blood Cell Count 1.82 X10^6/uL (4.0-5.2); Red Cell Distribution Width 13.2 % (11.6-14.8); White Blood Cell Count 12.5 X10^3/uL (4.5-11.0)
[2021-07-22 06:42] LABS: Hematocrit 18.1 % (36-46)
[2021-07-22 06:56] LABS: Bilirubin Total < 0.1 mg/dL (0.2-1.3)
[2021-07-22] MEDS: IRON SUCROSE 300 MG in SODIUM CHLORIDE 0.9% 100 ML 76.667 ML IV (08:02)
[2021-07-22] MEDS: LABETALOL 100 MG TABLET PO (08:34)
[2021-07-22] MEDS: diphenhydrAMINE 25 MG TABLET PO (09:28)
--- NOTE | 2021-07-22 09:50 | P.PNOB_ITS ---
Subjective - OB Subjective Patient comments: no complaints [place] baby status: stillbirth Date Patient Seen: 07/22/21 Time Patient Seen: 09:51 Interval history: delivery stillbirth at 30 weeks with severe p reeclampsia. Patient has been off of magnesium for approximately 10 hours. She is starting to feel normal. No headaches, scotomata, epigastric pain. She is ambulatory. Exam Vital Signs (past 8 hours): - Blood pressure 141/82 and 118/76 07/22/21 08:34 Pulse Rate 94 H Blood Pressure 141/72 H Narrative Exam Narrative: Abdomen is soft, nontender. Extremities without edema and nontender. DTRs are normal. Objective Labs Result Diagrams: 07/22/21 06:04 07/20/21 10:12 Labs: Laboratory Results - last 24 hr 07/19/21 07/21/21 07/22/21 10:40 15:40 06:04 WBC RBC Hgb Hct MCV MCH MCHC RDW Plt Count Neut % (Auto) Lymph % (Auto) [place] % (Auto) Eos % (Auto) Baso % (Auto) Neut # (Auto) Lymph # (Auto) [place] # (Auto) Eos # (Auto) Baso # (Auto) Magnesium 6.7 H* Total Bilirubin < 0.1 L Conjugated Bilirubin 0.0 Unconjugated Bilirubin 0.1 AST 30 ALT 24 Alkaline Phosphatase 218 H Total Protein 4.5 L Albumin 2.3 L Globulin 2.2 Albumin/Globulin Ratio 1.0 Blood Type A Positive Antibody Screen Negative Crossmatch See Detail 07/22/21 06:04 WBC 12.5 H RBC 1.82 L Hgb 6.0 L* Hct 18.1 L* MCV 99.2 MCH 32.9 MCHC 33.2 RDW 13.2 Plt Count 117 L Neut % (Auto) 81.7 H Lymph % (Auto) 10.8 L [place] % (Auto) 6.5 Eos % (Auto) 0.9 L Baso % (Auto) 0.1 Neut # (Auto) 44196 H Lymph # (Auto) 1400 [place]illespie # (Auto) 800 Eos # (Auto) 100 Baso # (Auto) 0 Magnesium Total Bilirubin Conjugated Bilirubin Unconjugated Bilirubin AST ALT Alkaline Phosphatase Total Protein Albumin Globulin Albumin/Globulin Ratio Blood Type Antibody Screen Crossmatch Assessment & Plan Assessment and Plan (1) demise in nash greater than 22 weeks gestation, antepartum: Status: Acute (2) Severe preeclampsia: Status: Acute (3) Anemia affecting : Status: Acute Plan day: 2 Comments: Due to patient's significant anemia will transfuse 2 units of packed red blood cells. If she continues to do well off the magnesium possible home later today. Time Spent With Patient Time: Total time spent is greater than 50% in coordination of care (as documented) at patient's floor/unit and/or counseling patient: Time with patient: less than 15 minutes
--- NOTE | 2021-07-22 16:06 | P.DS_ITS ---
Discharge Providers Provider Date of admission: 07/19/21 08:34 Discharge Date: 07/22/21 Consults: 07/19/21 09:49 Consult to Anesthesiology Urgent Comment: Consulting Provider: Anesthesiologist Reason for consultation: analgesia for IUFD LABOR Has provider been notified: No 07/22/21 00:43 Consult to Endoscopy Specialty Technician Routine Comment: Discharge provider: Kate Jonas MD Summary Hospital Course Date Patient Seen: 07/22/21 Time Patient Seen: 16:09 Diagnoses: Vaginal delivery of 30 week demise, severe preeclampsia, anemia requiring blood transfusion Hospital Course: Patient arrived on Labor and delivery with vaginal bleeding and pain. It was discovered that she had a intrauterine demise. She was induced with prostaglandins and Pitocin and received an epidural catheter for pain control. She was placed on IV magnesium sulfate for seizure prevention. She had a sponta neous vaginal delivery of a male . She was kept on IV magnesium sulfate for 24 hours post delivery. She was started on labetalol 100 mg b.i.d. to control blood pressure. Patient's hematocrit decreased significantly so she was transfused 2 units of packed red blood cells. Is urinating and ambulating well. No nausea. Normal vaginal bleeding. No headaches, scotomata, epigastric pain. Peripartum Data Infant Delivery Method: Natural Vaginal Laceration Description: None complications: transfusion [place] 1: Gender: Male Disposition of : Discharge Diagnosis (1) demise in nash greater than 22 weeks gestation, antepartum: Status: Acute (2) Severe preeclampsia: Status: Acute (3) Anemia affecting : Status: Acute Status at Discharge Cognitive/behavioral status at discharge: oriented Functional status at discharge: independent ambulation Overall status at discharge: patient is progressing back to baseline Time Spent with Patient Time attestation: Total time spent providing and/or coordinating discharge services: Time spent: Less than 30 minutes Objective Labs Result Diagrams: 07/22/21 06:04 07/20/21 10:12 Labs: Laboratory Results - last 24 hr 07/19/21 07/21/21 07/22/21 10:40 15:40 06:04 WBC RBC Hgb Hct MCV MCH MCHC RDW Plt Count Neut % (Auto) Lymph % (Auto) Delta % (Auto) Eos % (Auto) Baso % (Auto) Neut # (Auto) Lymph # (Auto) Delta # (Auto) Eos # (Auto) Baso # (Auto) Magnesium 6.7 H* Total Bilirubin < 0.1 L Conjugated Bilirubin 0.0 Unconjugated Bilirubin 0.1 AST 30 ALT 24 Alkaline Phosphatase 218 H Total Protein 4.5 L Albumin 2.3 L Globulin 2.2 Albumin/Globulin Ratio 1.0 Blood Type A Positive Antibody Screen Negative Crossmatch See Detail 07/22/21 06:04 WBC 12.5 H RBC 1.82 L Hgb 6.0 L* Hct 18.1 L* MCV 99.2 MCH 32.9 MCHC 33.2 RDW 13.2 Plt Count 117 L Neut % (Auto) 81.7 H Lymph % (Auto) 10.8 L Delta % (Auto) 6.5 Eos % (Auto) 0.9 L Baso % (Auto) 0.1 Neut # (Auto) 58144 H Lymph # (Auto) 1400 Delta # (Auto) 800 Eos # (Auto) 100 Baso # (Auto) 0 Magnesium Total Bilirubin Conjugated Bilirubin Unconjugated Bilirubin AST ALT Alkaline Phosphatase Total Protein Albumin Globulin Albumin/Globulin Ratio Blood Type Antibody Screen Crossmatch Exam Vital Signs (past 8 hours): - 07/22/21 08:34 07/22/21 09:57 07/22/21 10:21 Temperature 97.4 F L 98.5 F Pulse Rate 94 H 92 H 97 H Respiratory Rate 12 11 L Blood Pressure 141/72 H 136/73 133/75 07/22/21 13:17 07/22/21 13:26 07/22/21 13:30 Temperature 98.6 F 98.6 F 98.6 F Pulse Rate 88 88 88 Respiratory Rate 12 12 12 Blood Pressure 134/73 134/73 134/73 07/22/21 13:45 Temperature 98.2 F Pulse Rate 94 H Respiratory Rate 12 Blood Pressure 138/80 Narrative Exam Narrative: Patient's abdomen is soft, nontender. Uterus is firm, mild tenderness, 2 finger breaths below the umbilicus. Mild lochia. Extremities without edema and nontender. Normal DTRs. Discharge Plan Discharge Plan Patient Disposition: Home Discharge orders & Medications Prescriptions: New labetalol 100 mg Tablet 100 mg PO BID Qty: 30 RF: 0 Continued vit 60-iron fum-folic 27 mg iron- 1 mg Tablet 1 tab PO DAILY RF: 0 ferrous sulfate 325 mg 325 mg PO DAILY RF: 0 Follow up/Referrals: Kate Jonas MD [Physician] - 07/24/21 (Blood pressure check with Dr Jonas on Friday at 10:15am appointment with Teresa: telehealth 08/02 at 3pm in office visit 08/24 at 2pm) Diet/Activity/Treatments Diet: Regular Activity: Nothing in vagina for 4 weeks. Walking but no extensive physical activity until cleared by the doctor Skin/Wound/Dressing Care Report to your healthcare provider any signs of infection, such as:: chills, fe anna and increased pain Visit Report/Discharge Packet Stand Alone Forms: Discharge: Care Discharge Data Attending Provider: Teresa He
--- NOTE | 2021-07-26 08:49 | PC.NURSE ---
Late Entry: 2nd bag of PRBCs scanned and verified at the time of administration but documentation not saved
== END 2021-07-22 16:40 | disposition home or self-care (01) | DRG 807 ==
PROVIDERS: Specialist; Admitting Provider Nurse Practitioner Obstetrics & Gynecology; Referring Provider Nurse Practitioner Obstetrics & Gynecology; Visit Provider Nurse Practitioner Obstetrics & Gynecology
DX: O14.14 Severe pre-eclampsia complicating childbirth (principal); Z37.1 Single stillbirth; O67.8 Other intrapartum hemorrhage; Z3A.30 30 weeks gestation of pregnancy; O36.5930 Maternal care for other known or suspected poor fetal growth, third trimester, not applicable or unspecified; Z20.822 Contact with and (suspected) exposure to COVID-19; O99.02 Anemia complicating childbirth; D64.9 Anemia, unspecified
CPT/HCPCS: 01967; 36415; 36430; 59050; 59200; 76815; 80076; 81001; 81003; 81015; 82570; 83735; 84156; 84450; 84550; 85025; 85460; 86850; 86900; 86901; 87086; 87635; 99252; C9803; G0378; P9016; G0379; J0360; J1756; J1885; J2405; J2590; J3475; S0191

== ENCOUNTER → 2021-10-31 13:33 | Outpatient (ROUT) | payer OTHER, SELFPAY ==
[2021-10-31 16:23] LABS: Urine N gonorrhoeae NOT DETECTED
[2021-10-31 16:40] LABS: Urine Chlamydia NOT DETECTED
== END ==
PROVIDERS: Visit Provider Obstetrics & Gynecology
DX: Z34.81 Encounter for supervision of other normal pregnancy, first trimester (principal); Z3A.10 10 weeks gestation of pregnancy
CPT/HCPCS: 87491; 87591

== ENCOUNTER → 2022-01-15 08:55 | Outpatient (CLI) | payer OTHER, SELFPAY ==
[2022-01-15 09:17] LABS: Specimen Label NATERA
[2022-01-17 22:05] LABS: AFP Value 73.1 ng/mL (.); Gestational Age Ultrasound (.); Insulin Dep Diabetes No (.); OSBR Risk 1IN 10000 (.); Results Report (.); Test Results *Screen Negative* (.)
== END ==
PROVIDERS: Referring Provider Obstetrics & Gynecology; Visit Provider Obstetrics & Gynecology
DX: Z34.82 Encounter for supervision of other normal pregnancy, second trimester (principal); Z3A.19 19 weeks gestation of pregnancy
CPT/HCPCS: 36415; 82105

== ENCOUNTER → 2022-03-09 09:30 | Outpatient (CLI) | payer OTHER, SELFPAY ==
[2022-03-09 11:15] LABS: Hematocrit 32.4 % (36-46); Hemoglobin 11.4 g/dL (12.0-16.0)
[2022-03-09 11:28] LABS: GTT (PREG) 1 Hour PP 50gm Dose 98 mg/dL (76-139)
== END ==
PROVIDERS: Referring Provider Obstetrics & Gynecology; Visit Provider Obstetrics & Gynecology
DX: Z34.82 Encounter for supervision of other normal pregnancy, second trimester (principal); Z3A.26 26 weeks gestation of pregnancy
CPT/HCPCS: 36415; 82950; 85014; 85018

== ENCOUNTER 2022-03-18 14:56 | Outpatient (CLI) | payer OTHER, SELFPAY | END 2022-03-18 16:10 | disposition home or self-care (01) | LOC: LABOR 15:05 → OB 03-20 13:16 | PROVIDERS: PCP Obstetrics & Gynecology; Referring Provider Obstetrics & Gynecology; Visit Provider Obstetrics & Gynecology | DX: O09.213 Supervision of pregnancy with history of pre-term labor, third trimester (principal); Z3A.28 28 weeks gestation of pregnancy; Z87.59 Personal history of other complications of pregnancy, childbirth and the puerperium | CPT/HCPCS: 59025; G0378; G0379 ==

== ENCOUNTER 2022-03-25 08:47 | Outpatient (CLI) | payer OTHER, SELFPAY ==
--- NOTE | 2022-03-25 10:29 | PM.OBTRLD ---
Visit Information Visit Information Date of evaluation: 03/25/22 Primary OB Provider: Naz Renteria On-call OB Provider: Kate Jonas Reason for Evaluation: Yes non-stress test non-stress test reason: other (History of 33 week demise) [facility] Medical History (Updated 03/25/22 @ 10:31 by Kate Jonas MD) Blood transfusion affecting Social History (Updated 10/29/21 @ 16:28 by Maribel Page RN) marital status: number of children: 0 household members: spouse lives independently: Yes caregiver/support person: No housing: house pets and animals: No education level: college occupational status: employed 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: always water heater temp set < 120 deg: Yes (Will check) working smoke detector in home: Yes fire extinguisher in home: Yes carbon monox detector in home: Yes firearms in home: No do you feel safe at home: Yes Smoking Status: Never smoker second hand exposure: No alcohol intake: former (stopped with ) substance use type: does not use during the past year weight has: remained stable well-balanced diet: daily or most days daily servings fruits/ve-4 caffeine: No Type(s) of exercise: walking frequency: 5-6 times per week additional social history: Patient was adopted doesn't know any family history Evaluation Evaluation Baseline heart rate: 150 Variability: Moderate (11-25) monitor accelerations: Present Monitor Decelerations: Absent Category of Tracing: Appropriate for gestational age Comments: Some initial uterine irritability resolved with patient emptying her bladder. Diagnosis, Plan/Disposition Final Diagnosis (1) 28 weeks gestation of : Status: Acute (2) High risk due to history of previous obstetrical problem in third trimester: Status: Acute Plan/Disposition Plan: Reassuring nonstress test. Continue weekly nonstress tests and OB visits. OB Disposition: home
== END 2022-03-25 10:38 | disposition home or self-care (01) ==
LOC: LABOR 09:13 → OB 03-27 09:05
PROVIDERS: Referring Provider Obstetrics & Gynecology; Visit Provider Obstetrics & Gynecology
DX: O09.293 Supervision of pregnancy with other poor reproductive or obstetric history, third trimester (principal); Z3A.28 28 weeks gestation of pregnancy
CPT/HCPCS: 59025; G0378; G0379

== ENCOUNTER 2022-04-01 08:45 | Outpatient (CLI) | payer OTHER, SELFPAY ==
--- NOTE | 2022-04-01 10:00 | P.TNLD_ITS ---
Visit Information Visit Information Date of evaluation: 04/01/22 Primary OB Provider: Naz Renteria On-call OB Provider: Kate Jonas Reason for Evaluation: Yes non-stress test non-stress test reason: other (History of 30 week demise) Vital Signs Vital Signs: Blood pressure 116/73, pulse 110, temperature 36.2? 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: always water heater temp set < 120 deg: Yes (Will check) working smoke detector in home: Yes fire extinguisher in home: Yes carbon monox detector in home: Yes firearms in home: No do you feel safe at home: Yes Smoking Status: Never smoker second hand exposure: No alcohol intake: former (stopped with ) substance use type: does not use during the past year weight has: remained stable well-balanced diet: daily or most days daily servings fruits/ve-4 caffeine: No Type(s) of exercise: walking frequency: 5-6 times per week additional social history: Patient was adopted doesn't know any family history Evaluation Evaluation Baseline heart rate: 150 Variability: Moderate (11-25) monitor accelerations: Present Monitor Decelerations: Variable Category of Tracing: Appropriate for gestational age Diagnosis, Plan/Disposition Final Diagnosis (1) 29 weeks gestation of : Status: Acute (2) High risk due to history of previous obstetrical problem in third trimester: Status: Acute Plan/Disposition Plan: Nonstress test appropriate for gestational age. Keep routine OB appointments and weekly nonstress tests for prior 30 week demise OB Disposition: home
== END 2022-04-01 10:00 | disposition home or self-care (01) ==
LOC: LABOR 10:05 → OB 04-04 07:21
PROVIDERS: Referring Provider Obstetrics & Gynecology; Visit Provider Obstetrics & Gynecology
DX: O09.293 Supervision of pregnancy with other poor reproductive or obstetric history, third trimester (principal); Z3A.29 29 weeks gestation of pregnancy
CPT/HCPCS: 59025; G0378; G0379

== ENCOUNTER 2022-04-11 11:51 | Outpatient (CLI) | payer OTHER, SELFPAY | END 2022-04-11 13:12 | disposition home or self-care (01) | LOC: LABOR 12:20 → OB 04-12 06:49 | PROVIDERS: Referring Provider Obstetrics & Gynecology; Visit Provider Obstetrics & Gynecology | DX: O09.213 Supervision of pregnancy with history of pre-term labor, third trimester (principal); Z3A.31 31 weeks gestation of pregnancy | CPT/HCPCS: 59025; G0378; G0379 ==

== ENCOUNTER 2022-04-15 08:42 | Outpatient (CLI) | payer OTHER, SELFPAY | END 2022-04-15 09:20 | disposition home or self-care (01) | LOC: LABOR 09:11 → OB 16:27 | PROVIDERS: Referring Provider Obstetrics & Gynecology; Visit Provider Obstetrics & Gynecology | DX: O09.213 Supervision of pregnancy with history of pre-term labor, third trimester (principal); Z3A.31 31 weeks gestation of pregnancy | CPT/HCPCS: 59025; G0378; G0379 ==

== ENCOUNTER 2022-04-22 08:38 | Observation (INO) | payer OTHER, SELFPAY | END 2022-04-22 09:54 | disposition home or self-care (01) | PROVIDERS: Admitting Provider Obstetrics & Gynecology; Referring Provider Obstetrics & Gynecology; Visit Provider Obstetrics & Gynecology | DX: Z34.03 Encounter for supervision of normal first pregnancy, third trimester (principal); Z3A.32 32 weeks gestation of pregnancy | CPT/HCPCS: 59025; G0378; G0379 ==

== ENCOUNTER 2022-04-29 08:40 | Outpatient (CLI) | payer OTHER, SELFPAY | END 2022-04-29 09:45 | disposition home or self-care (01) | LOC: LABOR 09:29 → OB 14:40 | PROVIDERS: Referring Provider Obstetrics & Gynecology; Visit Provider Obstetrics & Gynecology | DX: O09.213 Supervision of pregnancy with history of pre-term labor, third trimester (principal); Z3A.33 33 weeks gestation of pregnancy | CPT/HCPCS: 59025; G0378; G0379 ==

== ENCOUNTER 2022-05-05 07:06 | Observation (INO) | payer OTHER, SELFPAY ==
--- NOTE | 2022-05-05 10:22 | PM.OBTRLD ---
Visit Information Visit Information Date of evaluation: 05/05/22 Primary OB Provider: Naz Renteria On-call OB Provider: Naz Renteria Reason for Evaluation: Yes other Comments/Additional reasons for admission: Vaginal bleeding [facility] Medical History (Updated 04/29/22 @ 05:40 by Naz Renteria MD) Blood transfusion affecting demise in nash greater than 22 weeks gestation, antepartum Hypertension, condition or complication Social History (Updated 10/29/21 @ 16:28 by Maribel Page RN) marital status: number of children: 0 household members: spouse lives independently: Yes caregiver/support person: No housing: house pets and animals: No education level: college occupational status: employed 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: 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 water heater temp set < 120 deg: Yes (Will check) working smoke detector in home: Yes fire extinguisher in home: Yes carbon monox detector in home: Yes firearms in home: No do you feel safe at home: Yes Smoking Status: Never smoker second hand exposure: No alcohol intake: former (stopped with ) substance use type: does not use during the past year weight has: remained stable well-balanced diet: daily or most days daily servings fruits/ve-4 caffeine: No Type(s) of exercise: walking frequency: 5-6 times per week additional social history: Patient was adopted doesn't know any family history Review of Systems Review of Systems Narrative: Patient reports that she woke up this morning and went to the bathroom and had pink on the tissue when she wiped. She has not had any recent intercourse. She does not believe she was having any contractions, but was having some [place] contractions. No leakage of fluid. Good movement. Exam Narrative Exam Narrative: Generally: Patient lying in bed, no acute distress Evaluation Evaluation Baseline heart rate: 150 Variability: Moderate (11-25) monitor accelerations: Present Monitor Decelerations: Absent Contraction Frequency (minutes): 8 Uterine Contraction Intensity: Mild Category of Tracing: Reactive Cervical dilation (cm): 1 Cervical effacement (%): 80 station: -1 Diagnosis, Plan/Disposition Plan/Disposition Plan: Assessment: 27-year-old 2 para 0100 at 35 weeks gestations with scant vaginal bleeding Shaji Marshall contraction Dilation of the cervix to 1 cm Plan: Discharge to home Patient is scheduled for appointment tomorrow for nonstress test, but we will count today's nonstress test instead Follow-up in 1 week Signs and symptoms of labor reviewed OB Disposition: home
== END 2022-05-05 09:20 | disposition home or self-care (01) ==
LOC: LABOR 07:08
PROVIDERS: Admitting Provider Obstetrics & Gynecology; Referring Provider Obstetrics & Gynecology; Visit Provider Obstetrics & Gynecology
DX: O46.93 Antepartum hemorrhage, unspecified, third trimester (principal); O47.03 False labor before 37 completed weeks of gestation, third trimester; Z3A.35 35 weeks gestation of pregnancy
CPT/HCPCS: 59025; 59050; G0378; G0379

== ENCOUNTER 2022-05-14 13:51 | Outpatient (CLI) | payer OTHER, SELFPAY ==
--- NOTE | 2022-05-14 14:27 | P.TNLD_ITS ---
Visit Information Visit Information Date of evaluation: 05/14/22 Primary OB Provider: Naz Renteria On-call OB Provider: John Gilliam Reason for Evaluation: Yes non-stress test Comments/Additional reasons for admission: Prior stillbirth periods scheduled for induction in 1 week. 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: always water heater temp set < 120 deg: Yes (Will check) working smoke detector in home: Yes fire extinguisher in home: Yes carbon monox detector in home: Yes firearms in home: No do you feel safe at home: Yes Smoking Status: Never smoker second hand exposure: No alcohol intake: former (stopped with ) substance use type: does not use during the past year weight has: remained stable well-balanced diet: daily or most days daily servings fruits/ve-4 caffeine: No Type(s) of exercise: walking frequency: 5-6 times per week additional social history: Patient was adopted doesn't know any family history Evaluation Evaluation Baseline heart rate: 150 Variability: Moderate (11-25) monitor accelerations: Present Monitor Decelerations: Absent Category of Tracing: Reactive Diagnosis, Plan/Disposition Final Diagnosis (1) History of stillbirth: Status: Acute (2) High risk due to history of previous obstetrical problem in third trimester: Status: Acute (3) History of pre-eclampsia: Status: Acute (4) : Status: Acute Plan/Disposition Plan: Continue scheduled antepartum assessments. Induction scheduled for 05/20/2022. OB Disposition: home
== END 2022-05-14 14:29 | disposition home or self-care (01) ==
LOC: OB 05-15 10:46
PROVIDERS: Referring Provider Obstetrics & Gynecology; Visit Provider Obstetrics & Gynecology
DX: O09.293 Supervision of pregnancy with other poor reproductive or obstetric history, third trimester (principal); Z3A.36 36 weeks gestation of pregnancy; Z34.83 Encounter for supervision of other normal pregnancy, third trimester
CPT/HCPCS: 59025; 87653; G0378; G0379

== ENCOUNTER → 2022-05-14 15:48 | Outpatient (CLI) | payer OTHER, SELFPAY ==
[2022-05-15 12:34] LABS: Strep Grp B PCR NEG for Grp B Strep
== END ==
PROVIDERS: Visit Provider Obstetrics & Gynecology
DX: Z34.83 Encounter for supervision of other normal pregnancy, third trimester (principal); Z3A.36 36 weeks gestation of pregnancy
CPT/HCPCS: 87653

== ENCOUNTER 2022-05-20 18:25 | Inpatient (IN) | payer OTHER, SELFPAY ==
[2022-05-20 19:11] LABS: Add Manual Diff / Slide Review NO; Basophils Absolute Auto 0 /uL (0-100); Basophils Percent Auto 0.3 % (0-2); Eosinophils Absolute Auto 100 /uL (0-450); Hematocrit 29.7 % (36-46); Hemoglobin 10.3 g/dL (12.0-16.0); Lymphocytes Absolute Auto 1500 /uL (1100-4500); Lymphocytes Percent Auto 16.5 % (25-40); Mean Corpuscular HGB Conc 34.7 % (30-36); Mean Corpuscular Hemoglobin 31.1 PG (26-34); Mean Corpuscular Volume 89.7 fL (80-100); Monocytes Absolute Auto 800 /uL (0-900); Monocytes Percent Auto 8.2 % (3-14); Neutrophils Absolute Auto 6800 /uL (1500-7000); Platelet Count 247 X10^3/uL (150-400); Red Blood Cell Count 3.31 X10^6/uL (4.0-5.2); Red Cell Distribution Width 13.4 % (11.6-14.8); White Blood Cell Count 9.2 X10^3/uL (4.5-11.0)
[2022-05-20] MEDS: DINOPROSTONE VAG (CERVIDIL) 10 MG VAG (19:22)
[2022-05-20 23:02] LABS: COVID19 -Nasal RAPID Negative (Negative)
[2022-05-21] MEDS: ACETAMINOPHEN 325 MG TABLET 650 MG PO (04:18)
[2022-05-21] MEDS: LACTATED RINGERS 1,000 ML 100 ML IV ×5 (07:35→23:24)
[2022-05-21] MEDS: FENT 2MCG/ML BUPIV 0.125% EPI 200 MCG/100 ML PLAST..BAG 8 MCG EPIDURAL ×2 (08:08→15:14)
--- NOTE | 2022-05-21 10:39 | PM.OBPNLAB ---
Date/Time Date Patient Seen: 05/21/22 Time Patient Seen: 10:39 Pain Control Pain control: epidural Pelvic Exam station: -1 Contractions Contractions on admission: irregular Monitor mode: External Contraction pattern: Irregular Contraction intensity: Moderate Status status: Category ll Heart Rate Baseline: 150 Monitor Accelerations: Present Monitor Decelerations: Late (Some late decelerations due to frequency of contractions.) and Variable (Episodic resolved with position change) Monitor Variability: Moderate Assessment and Plan Assessment: active labor Comments: Will continue fluid boluses, position change, and monitor for worsening decelerations.
[2022-05-21 11:27] VITALS: BP 113/68
--- NOTE | 2022-05-21 12:23 | PM.OBPNLAB ---
Date/Time Date Patient Seen: 05/21/22 Time Patient Seen: 12:23 Pain Control Pain control: epidural Pelvic Exam Dilation (cm): 3 Effacement (%): 80 station: -1 Amniotic membrane status: Ruptured (Artificial rupture membranes performed clear fluid) Contractions Contractions on admission: regular Monitor mode: External Contraction pattern: Regular Contraction intensity: Moderate Status status: Category l Heart Rate Baseline: 150 Monitor Accelerations: Present Monitor Decelerations: Absent Monitor Variability: Moderate Assessment and Plan Assessment: active labor Plan: continuous present management
--- NOTE | 2022-05-21 18:23 | P.HPOB_ITS ---
OB HPI Date/Time Date of admission: 05/20/22 Date Patient Seen: 05/21/22 Time Patient Seen: 07:00 History of Present Condition Chief complaint: Induction : 2 Para: 1 Estimated Date of Delivery: 06/11/22 Estimated Gestational Age (weeks): 37 Narrative: Celso Briseno is a 27 year old female admitted for induction at 37 weeks due to prior 30 week intrauterine demise probably due to preeclampsia Indications Indication for induction OB: other (Prior 30 week intrauterine demise) History of Present care: good care, initiated at week # (8), number of visits (10) and pounds weight gain (24) Dating criteria: LMP confirmed by 1st trimester US Ultrasounds: normal mid trimester US Obstetrical complications: none Medical complications: none Preadmission Labs Blood type: A (+) positive -: Antibody screen: negative, GBS status: negative, HBsAG: negative, HIV: negative, HSV 1: negative, HSV 2: negative and RPR/VDLR: negative -: Chlamydia screen: not detected and Gonorrhea screen: not detected -: Rubella: immune and Varicella: immune HCAB: negative Cell-free DNA: Normal male 1 hr GTT: 98 Prior (ies) History: 07/21/2021 vaginal delivery intrauterine demise at 30 weeks with severe preeclampsia Evaluation Evaluation Baseline heart rate: 140 Variability: Moderate (11-25) monitor accelerations: Present Monitor Decelerations: Absent Contraction Frequency (minutes): 2 Uterine Contraction Intensity: Moderate Status: Category l Dilation (cm): 1 Effacement (%): 60 station: -1 [facility] Medical History (Updated 05/20/22 @ 20:50 by John Gilliam MD) Blood transfusion affecting demise in nash greater than 22 weeks gestation, antepartum Hypertension, condition or complication Social History (Updated 10/29/21 @ 16:28 by Maribel Page RN) marital status: number of children: 0 household members: spouse lives independently: Yes caregiver/support person: No housing: house pets and animals: No education level: college occupational status: employed 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: always water heater temp set < 120 deg: Yes (Will check) working smoke detector in home: Yes fire extinguisher in home: Yes carbon monox detector in home: Yes firearms in home: No do you feel safe at home: Yes Smoking Status: Never smoker second hand exposure: No alcohol intake: former (stopped with ) substance use type: does not use during the past year weight has: remained stable well-balanced diet: daily or most days daily servings fruits/ve-4 caffeine: No Type(s) of exercise: walking frequency: 5-6 times per week additional social history: Patient was adopted doesn't know any family history Meds Home Medications and Allergies Home Medications Medication Instructions Recorded Confirmed Type vits no.60-ferrous 1 tab PO DAILY 07/19/21 05/20/22 History fumarate 27 mg iron-folic acid 1 mg tablet aspirin 81 mg chewable tablet 81 mg PO DAILY 10/29/21 05/20/22 History Allergies Allergy/AdvReac Type Severity Reaction Status Date / Time Latex, Natural Rubber AdvReac Verified 05/14/22 14:56 Review of Systems Review of Systems Narrative: Patient is having increasing contractions after Cervidil placed last evening for cervical ripening. She denies headaches, scotomata, epigastric pain. Good movement. No leakage of fluid. No vaginal bleeding. OB Exam Narrative Exam Narrative: Blood pressure 127/74, pulse 97, temperature 97.3? HEENT exam within normal limits. Lungs are clear to auscultation and percussion. Heart is regular rate and rhythm no S3-S4 murmurs. Abdomen is gra vid. Fetus is vertex. Extremities without edema and nontender. Objective Labs Result Diagrams: 05/20/22 18:45 Labs: Laboratory Results - last 24 hr 05/20/22 05/20/22 05/20/22 18:45 18:45 18:50 WBC 9.2 RBC 3.31 L Hgb 10.3 L Hct 29.7 L MCV 89.7 MCH 31.1 MCHC 34.7 RDW 13.4 Plt Count 247 Neut % (Auto) 74.0 Lymph % (Auto) 16.5 L [place] % (Auto) 8.2 Eos % (Auto) 1.0 L Baso % (Auto) 0.3 Neut # (Auto) 6800 Lymph # (Auto) 1500 [place] # (Auto) 800 Eos # (Auto) 100 Baso # (Auto) 0 SARS-CoV-2 (PCR) Negative Blood Type A Positive Antibody Screen Negative Assessment and Plan Assessment and Plan Assessment and Plan narrative: 37 week gestation with prior 30 week intrauterine demise admitted for induction. Cervidil was placed on the evening of 05/20/2022. Patient with onset of contractions and is requesting epidural for pain control. Anticipate vaginal delivery. Time Spent with Patient Total time spent with greater than 50% in coordination of care (as documented) at patient's floor/unit and/or counseling patient:: less than 15 minutes
--- NOTE | 2022-05-21 19:51 | P.PNOB_ITS ---
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 27 yo female undergoing induction for h/o prior IUFD. I met the pt previously in the office. She has been progressing in labor after her Cervidil today, not on Pitocin. Had artificial rupture membranes, and continues to progress. Last exam 1630 was 5 cm. Pelvic Exam Dilation (cm): 5 Effacement (%): 90 station: -1 Amniotic membrane status: Ruptured (Artificial rupture membranes performed clear fluid) Comments: exam at 1630 Contractions Contractions on admission: regular Monitor mode: External Contraction frequency (min): 6 Contraction pattern: Regular Contraction intensity: Moderate Status status: Category ll Monitor Accelerations: Episodic Monitor Decelerations: Late Comments: episodic late decelerations, not recurrent. Improved to occasional with position change to right side currently. Overall reassuring EFM. Assessment and Plan Assessment: active labor and induction ongoing Plan: continuous present management Comments: GBS negative. Will recheck her cervix at 8:30 p.m.
--- NOTE | 2022-05-21 20:53 | PM.OBPNLAB ---
Date/Time Date Patient Seen: 05/21/22 Time Patient Seen: 20:53 Pain Control Pain control: epidural Pelvic Exam Dilation (cm): 6 Effacement (%): 90 station: -2 Amniotic membrane status: Ruptured (Artificial rupture membranes performed clear fluid) Contractions Monitor mode: External Contraction frequency (min): 4 Contraction pattern: Regular Contraction intensity: Moderate Status status: Category ll Heart Rate Baseline: 155 Monitor Accelerations: Episodic Monitor Decelerations: Episodic (occasional mild variable and mild late decel) Monitor Variability: Moderate Assessment and Plan Assessment: induction ongoing (sponaneous labor after cervidil) Comments: Discussed some progress, to 6 cm. Discuss usually the active labor begins after 6 cm, so hopefully will begin dilating a little quicker. Discussed since did take 4 hours to move the 1 cm, consideration of having some Pitocin low dose to augment the contraction intensity.. She is agreeable to starting Pitocin.
[2022-05-21] MEDS: OXYTOCIN PREMIX 30 UNIT/500 ML PLAST..BAG IV (21:24)
--- NOTE | 2022-05-21 23:12 | PM.OBPNLAB ---
Date/Time Date Patient Seen: 05/21/22 Time Patient Seen: 11:05 Pain Control Pain control: tolerating well and epidural Pelvic Exam Dilation (cm): 7 Effacement (%): 90 station: -2 Amniotic membrane status: Ruptured (Artificial rupture membranes performed clear fluid) Contractions Monitor mode: External Pitocin rate (mU/min): 1 Contraction frequency (min): 4 Contraction pattern: Irregular (coupling of ctxs, q 2-5 min) Contraction intensity: Moderate Status status: Category ll Heart Rate Baseline: 155 Monitor Accelerations: Episodic Monitor Decelerations: Episodic and Variable Monitor Variability: Moderate Comments: occasional decel Assessment and Plan Assessment: induction ongoing Plan: continuous present management
[2022-05-22] MEDS: FENT 2MCG/ML BUPIV 0.125% EPI 200 MCG/100 ML PLAST..BAG 8 MCG EPIDURAL ×2 (01:34→09:43)
[2022-05-22] MEDS: ACETAMINOPHEN 325 MG TABLET 650 MG PO ×2 (01:35→15:49)
--- NOTE | 2022-05-22 04:07 | PM.OBPNLAB ---
Date/Time Date Patient Seen: 05/22/22 Time Patient Seen: 04:25 Pain Control Pain control: epidural Comments: feeling pressure Pelvic Exam Dilation (cm): 8 Effacement (%): 90 station: -2 Amniotic membrane status: Ruptured (Artificial rupture membranes performed clear fluid) Comments: cervix 7-8 cm, possible OP position Contractions Monitor mode: External Pitocin rate (mU/min): 1 Contraction frequency (min): 5 Contraction pattern: Irregular (coupling of ctxs, q 2-5 min) Contraction intensity: Moderate Status status: Category ll Heart Rate Baseline: 155 Monitor Accelerations: Absent Monitor Decelerations: Early and Variable Monitor Variability: Moderate Assessment and Plan Assessment: induction ongoing Comments: re-check cervix in 1 hour
[2022-05-22] MEDS: LACTATED RINGERS 1,000 ML 100 ML IV ×3 (05:36→15:50)
--- NOTE | 2022-05-22 06:46 | PM.OBPNLAB ---
Date/Time Date Patient Seen: 05/22/22 Time Patient Seen: 06:35 Pain Control Pain control: tolerating well and epidural Pelvic Exam Dilation (cm): 9 Effacement (%): 90 station: 0 Amniotic membrane status: Ruptured (Artificial rupture membranes performed clear fluid) Contractions Monitor mode: External Contraction frequency (min): 5 Contraction pattern: Irregular (q 2-5 min) Contraction intensity: Moderate Status status: Category ll Heart Rate Baseline: 160 Monitor Accelerations: Episodic Monitor Decelerations: Variable Monitor Variability: Moderate Comments: 3 sequential moderate to severe variable decels after pt did a position change, resolved with re-positioning. Back to reassuring FHT + scalp stim, +FHR accels with exams, current exam Assessment and Plan Assessment: induction ongoing Comments: slow but continued cervical change. Vertex with now some descent on current exam, but ?OP position. Re-check cervix in few hoursm, shoud be complete if progressing.
--- NOTE | 2022-05-22 10:37 | PM.PREOP ---
Pre-operative Note COVID-19 COVID-19 status: Negative Result date/Date tested (Pos, Neg/Pending): 05/20/22 Criteria for continued procedure: Delay expected to result in less-positive ultimate med/surg outcome Interval Note History & Physical reviewed/Exam performed by Physician: Yes Changes to H&P: Yes H&P completed within 30 days and has changed as indicated here:: Failure to deliver, 2nd stage arrest
[2022-05-22] MEDS: CITRIC ACID/SODIUM CITRATE 15 ML SOLUTION 30 ML PO (10:38)
--- NOTE | 2022-05-22 10:38 | PM.OBPNLAB ---
Date/Time Date Patient Seen: 05/22/22 Time Patient Seen: 10:38 Pain Control Pain control: epidural Pelvic Exam Dilation (cm): 10 Effacement (%): 100 station: 0 Amniotic membrane status: Ruptured (Artificial rupture membranes performed clear fluid) Contractions Monitor mode: External Pitocin rate (mU/min): 4 Contraction frequency (min): 2 Contraction pattern: Irregular (q 2-5 min) Contraction intensity: Strong/Firm Status status: Category ll Heart Rate Baseline: 170 Monitor Accelerations: Present Monitor Decelerations: Periodic Monitor Variability: Moderate Comments: Patient was given options after 2-1/2 hours of pushing with not significant change of proceeding with , attempt at forceps or vacuum delivery. The patient opted to try forceps but they were not able to be placed appropriately. Attempt at vacuum delivery with 2 pulls did not have any descent of the head so decision was made to proceed with section. section risks were discussed with the patient including damage to internal structures such as bowel, bladder, ureters that could require additional surgery to repair. Higher risk of infection so she will receive antibiotics prior to the beginning of the case. Higher risk of bleeding enough to require a blood transfusion. Patient is agreeable to transfusion if necessary to save her life. She is agreeable to save any tissue that might be needed to send to pathology. Consent form signed and questions answered. Assessment and Plan Plan:
[2022-05-22] MEDS: CEFAZOLIN 2 GM/100 ML PREMIX 100 ML IV (10:53)
--- NOTE | 2022-05-22 11:19 | SUR.OPER ---
Supine on Padded OR bed, head on pillow, safety belt at thigh, arms secured on padded arm boards at <90 degrees abduction. Bump under right buttock. Legs uncrossed with pillow under knees, gel pad to heels, tape over blanket to lower legs. Gel pad placed between posterior thigh and urinary catheter tubing.
--- NOTE | 2022-05-22 11:20 | SUR.OPER ---
Viable baby boy delivered at 1102. Placenta and cord blood tubes X2 given to L&D RN.
[2022-05-22 11:48] VITALS: BP 118/78; PULSE 102; RESP 16; TEMP 36.2; O2SAT 100
[2022-05-22 11:52] VITALS: BP 126/73; PULSE 105; RESP 18; O2SAT 99
--- NOTE | 2022-05-22 11:54 | PM.OBCS.1 ---
Operative Date/Time/Diagnoses Date of procedure: 05/22/22 Time of procedure: 11:54 Pre-op diagnosis: Second-stage arrest Post-op diagnosis: same Procedure & Clinicians Procedure: Primary low-transverse section Same procedure as scheduled: Yes Surgeon: Kate Jonas Click Yes if Unassisted: Yes Anesthesia Type: Epidural Operative Notes Findings: Normal tubes, ovaries, uterus. Viable male infant. Cord pH 7.342 and 7.287 base excess-4 and -3. Apgars 6, 7, 9, weight 7 lb 6 oz Closure Type: primary Specimen(s): cord blood and cord pH Intraoperative meds administered: Duramorph, Ketorolac, Methergine and Pitocin Applied: Catheter (Parisi, non latex) Estimated Blood Loss (mL): 500 Blood products transfused: none Procedure in detail: The patient was brought to the operating room where she underwent bolus of epidural for anesthesia. She was placed in a supine position with a left lateral tilt. A Parisi catheter was placed. Pulsatile stockings were placed and functional throughout the case. 2 g of Ancef were given IV prior to the incision. Warming was in place. The patient was prepped and draped in usual sterile fashion. A low transverse incision was made with a scalpel and the incision was carried down to the fascial layer which was incised transversely with scissors. The midline attachments are superiorly and inferiorly. Some bleeding was controlled Bovie. The rectus muscles were in the midline and the peritoneal incision was made with no damage to internal structures. The peritoneum was incised and superiorly and inferiorly. The incision was stretched with the surgeon and rn first assistant placing traction. Bladder blade was placed and a bladder flap was developed and the bladder held away from the lower uterine segment. An incision was made in the uterus with the scalpel and the incision was extended with stretching. The head was elevated out of the abdomen and with fundal pressure by the rn first assistant the baby was delivered. The was bulb suctioned for clear fluid and handed off to the warmer. After 45 seconds the cord was clamped and a cord segment sent for pH. Cord blood was collected. The placenta delivered spontaneously with traction. The uterus was cleaned with clean laps. The uterine incision was closed in 2 layers of 0 chromic suture the first a running locking layer the second an imbricating layer. The rn first assistant was helping to expose the incision. The bladder peritoneum was repaired with 2-0 Vicryl suture. The gutters were cleaned of any remaining fluids and ovaries and tubes were observed to be normal. Adequate hemostasis was noted. The perineum was closed with 2-0 Vicryl suture. The fascia layer was closed with 0 Vicryl suture with 2 stitches. The incision was irrigated and adequate hemostasis noted. The incision was closed with interrupted 3-0 Vicryl sutures and then a subcuticular stitch of 4-0 Vicryl suture. Steri-Strips were placed. The uterus was massaged to remove any clots. The patient went to recovery room in good condition. Counts of instruments and sponges were correct. Complications: none [place] Baby 1: Gender: Male Presentation: vertex Position: Right Occiput Posterior Placental Delivery Description: Expressed Cord Vessel Description: 3 Vessels score (1 min): 6 score (5 min): 7 score (10 min): 9 weight: 7 lb 6 oz Post-operative Condition: stable Disposition: other ( Center) Aftercare: routine postop
[2022-05-22 11:58] VITALS: BP 123/78; PULSE 103; RESP 16; O2SAT 99
[2022-05-22] MEDS: MEPERIDINE 50 MG/ML INJ 12.5 MG IV (12:04)
[2022-05-22] MEDS: KETOROLAC 30 MG/ML VIAL IV ×2 (12:11→18:26)
[2022-05-22] MEDS: OXYCODONE IR 5 MG TABLET PO (12:12)
--- NOTE | 2022-05-22 12:15 | SUR.PHASEI ---
Pt arrived in pain, awake, stable oxycodone, torodol and demeral for shakes, shakes resolved, pain 05/15, down 03/15.
[2022-05-22 12:17] VITALS: BP 126/80; PULSE 89; RESP 19; TEMP 37.1; O2SAT 98
--- NOTE | 2022-05-22 12:21 | SUR.PHASEI ---
Report to Ellen
[2022-05-22 12:33] VITALS: BP 129/55; PULSE 94; RESP 20; TEMP 37.2; O2SAT 98
[2022-05-23] MEDS: KETOROLAC 30 MG/ML VIAL IV ×2 (00:34→06:10)
[2022-05-23] MEDS: ACETAMINOPHEN 325 MG TABLET 650 MG PO ×3 (00:35→20:45)
[2022-05-23] MEDS: OXYCODONE IR 5 MG TABLET PO (06:10)
[2022-05-23] MEDS: IBUPROFEN 600 MG TABLET PO ×4 (06:20→23:30)
[2022-05-23 08:00] VITALS: BP 114/75; PULSE 92; RESP 18; TEMP 36.7
--- NOTE | 2022-05-23 08:07 | PM.OBPN.1 ---
Subjective - OB Subjective Patient comments: no complaints and incisional pain [place] baby status: doing well feeding status: exclusively breast feeding Narrative: Patient states she is doing well. She had incisional pain when she 1st got up but is ambulatory. Awaiting the tongue tie clip later today. No nausea. No headaches, scotomata, epigastric pain. Mild bleeding. Date Patient Seen: 05/23/22 Time Patient Seen: 08:08 Exam Vital Signs (past 8 hours): Blood pressure 94/64, pulse 92, temperature 98.3? Oxygen Delivery Method Room Air Oxygen Flow Rate 0 Narrative Exam Narrative: Abdomen is soft, nontender. Uterus is firm, at U, nontender. Dressing is clean, dry, intact. Mild lochia. Extremities without edema and nontender. Objective Labs Result Diagrams: 05/20/22 18:45 Assessment & Plan Plan day: 1 plan OB: routine postop care Time Spent With Patient Time: Total time spent is greater than 50% in coordination of care (as documented) at patient's floor/unit and/or counseling patient: Time with patient: less than 15 minutes
[2022-05-23 08:10] LABS: Add Manual Diff / Slide Review NO; Basophils Absolute Auto 0 /uL (0-100); Basophils Percent Auto 0.2 % (0-2); Eosinophils Absolute Auto 100 /uL (0-450); Eosinophils Percent Auto 0.9 % (2-4); Hematocrit 24.3 % (36-46); Hemoglobin 8.1 g/dL (12.0-16.0); Lymphocytes Absolute Auto 1100 /uL (1100-4500); Lymphocytes Percent Auto 9.5 % (25-40); Mean Corpuscular HGB Conc 33.4 % (30-36); Mean Corpuscular Hemoglobin 29.9 PG (26-34); Mean Corpuscular Volume 89.5 fL (80-100); Monocytes Absolute Auto 800 /uL (0-900); Monocytes Percent Auto 6.8 % (3-14); Neutrophils Absolute Auto 10000 /uL (1500-7000); Neutrophils Percent Auto 82.6 % (50-75); Platelet Count 203 X10^3/uL (150-400); Red Blood Cell Count 2.72 X10^6/uL (4.0-5.2); Red Cell Distribution Width 13.6 % (11.6-14.8); White Blood Cell Count 12.1 X10^3/uL (4.5-11.0)
[2022-05-24] MEDS: ACETAMINOPHEN 325 MG TABLET 650 MG PO ×2 (03:15→09:21)
[2022-05-24] MEDS: IBUPROFEN 600 MG TABLET PO (06:33)
--- NOTE | 2022-05-24 08:14 | P.DS_ITS ---
Discharge Providers Provider Date of admission: 05/20/22 18:25 Discharge Date: 05/24/22 Consults: 05/22/22 14:25 Consult to Financial Management Routine Comment: Discharge provider: Kate Jonas MD Summary Hospital Course Date Patient Seen: 05/24/22 Time Patient Seen: 08:14 Diagnoses: 37 week gestation. Induction for prior 30 week intrauterine demise, second-stage arrest, primary low-transverse section Hospital Course: Patient arrived on Labor and delivery on 05/19 for cervical ripening for induction. She received an epidural catheter for pain control. She had Pitocin augmentation of labor. She had attempt at vacuum delivery which failed so she was taken for primary low-transverse section for second-stage arrest. Postoperatively the patient did extremely well. She had no headaches, scotomata, epigastric pain. She is urinating and ambulating well. She is passing gas. Pain is controlled. She is . She denies any significant depression or anxiety. Peripartum Data Delivery Method: Section Procedures: Cervidil induction, Pitocin augmentation of labor, failed vacuum assisted vaginal delivery, primary low-transverse section, epidural catheter complications: none 1: Gender: Male Disposition of : home Discharge Diagnosis (1) Delivery by section using transverse incision of lower segment of uterus: Status: Acute Problem Details: Second-stage arrest (2) Anemia affecting : Status: Acute Status at Discharge Cognitive/behavioral status at discharge: oriented Functional status at discharge: independent ambulation Overall status at discharge: patient is progressing back to baseline Time Spent with Patient Time attestation: Total time spent providing and/or coordinating discharge services: Time spent: Less than 30 minutes Objective Labs Result Diagrams: 05/23/22 07:45 Exam Vital Signs (past 8 hours): Blood pressure 116/76, pulse of 85, temperature 97.9? Oxygen Delivery Method Room Air Oxygen Flow Rate 0 Narrative Exam Narrative: Abdomen is soft and nontender. Uterus is firm, at U, minimally tender. Dressing is clean, dry, intact. Extremities without edema and nontender. Mild lochia. Patient is Rh positive, rubella immune, she received Tdap in the 3rd trimester. Discharge Plan Discharge Plan Patient Disposition: Home Provider Discharge Comment: Patient is to continue taking her iron at home for anemia. Encouraged patient to use stool softeners and MiraLax to prevent constipation. Discharge orders & Medications Prescriptions: New ibuprofen 600 mg Tablet 600 mg PO Q6H PRN (Reason: Fever/Mild Pain (1-3)) Qty: 30 0RF oxycodone 5 mg Tablet 5 mg PO Q4H PRN (Reason: Pain, Moderate (4-6)) Qty: 20 0RF Continued vit 60-iron fum-folic 27 mg iron- 1 mg Tablet 1 tab PO DAILY Discontinued aspirin 81 mg tablet,chewable 81 mg PO DAILY Follow up/Referrals: Naz Renteria MD [Physician] - 1 Week (Aquacel removal and blood pressure check) Diet/Activity/Treatments Diet: Regular Activity: Nothing in vagina or lifting over 20 lb for 6 weeks Skin/Wound/Dressing Care Report to your healthcare provider any signs of infection, such as:: chills, fever and increased pain Dressing: Patient is to leave dressing in place until her one-week postop appointment
[2022-05-24] MEDS: DOCUSATE 100 MG CAPSULE 200 MG PO (09:21)
[2022-05-24] MEDS: FERROUS SULFATE 325 MG TABLET PO (09:21)
== END 2022-05-24 13:03 | disposition home or self-care (01) | DRG 788 ==
PROVIDERS: Specialist; Admitting Provider Obstetrics & Gynecology; Referring Provider Obstetrics & Gynecology; Visit Provider Obstetrics & Gynecology
PROC: 10D00Z1 Extraction of Products of Conception, Low, Open Approach (ICD-10-PCS; CPT 59514; principal; 2022-05-22 11:00)
DX: O62.1 Secondary uterine inertia (principal); Z3A.37 37 weeks gestation of pregnancy; Z37.0 Single live birth; O76 Abnormality in fetal heart rate and rhythm complicating labor and delivery; O66.5 Attempted application of vacuum extractor and forceps; O99.02 Anemia complicating childbirth; Z20.822 Contact with and (suspected) exposure to COVID-19
CPT/HCPCS: 01967; 01968; 36415; 59050; 59200; 59510; 59514; 85025; 86850; 86900; 86901; 87635; C9803; G0379; J0690; J1885; J2175; J2274; J2405; J2590

== ENCOUNTER → 2024-09-06 14:51 | Outpatient (CLI) | payer OTHER, MEDICAID, SELFPAY ==
[2024-09-06 15:45] LABS: Add Manual Diff / Slide Review NO; Basophils Absolute Auto 0 /uL (0-100); Basophils Percent Auto 0.2 % (0-2); Eosinophils Absolute Auto 100 /uL (0-450); Eosinophils Percent Auto 0.5 % (2-4); Hematocrit 38.7 % (36-46); Hemoglobin 13.1 g/dL (12.0-16.0); Lymphocytes Absolute Auto 1400 /uL (1100-4500); Lymphocytes Percent Auto 12.6 % (25-40); Mean Corpuscular HGB Conc 33.8 % (30-36); Mean Corpuscular Hemoglobin 32.7 PG (26-34); Mean Corpuscular Volume 96.9 fL (80-100); Monocytes Absolute Auto 500 /uL (0-900); Monocytes Percent Auto 4.3 % (3-14); Neutrophils Absolute Auto 9400 /uL (1500-7000); Neutrophils Percent Auto 82.4 % (50-75); Platelet Count 245 X10^3/uL (150-400); Red Blood Cell Count 3.99 X10^6/uL (4.0-5.2); Red Cell Distribution Width 12.8 % (11.6-14.8); White Blood Cell Count 11.4 X10^3/uL (4.5-11.0)
[2024-09-06 16:01] LABS: Alanine Aminotransferase 13 IU/L (<35); Aspartate Aminotransferase 24 IU/L (14-36); Blood Urea Nitrogen 9 mg/dL (7-17); Estimated Glomerular Filt Rate > 60 mL/min (>60); Uric Acid 1.8 mg/dL (2.5-6.2)
[2024-09-06 16:37] LABS: Hepatitis B Surface Antigen NEGATIVE s/c (NEGATIVE); Rubella Antibody IgG 48.4 IU/mL (>15)
[2024-09-06 16:52] LABS: HIV 1 & 2 Ab/Ag 4th Gen Combo NEGATIVE (NEGATIVE); Hep C Virus Ab w/Reflex Quant NEGATIVE s/c (NEGATIVE)
[2024-09-08 01:40] LABS: RPR Screen Non Reactive (Non Reactive)
[2024-09-08 11:36] LABS: Varicella IgG Antibody Reactive (Non Reactive)
== END ==
PROVIDERS: PCP Nurse Practitioner; Referring Provider Specialist; Visit Provider Specialist
DX: O09.299 Supervision of pregnancy with other poor reproductive or obstetric history, unspecified trimester (principal); Z87.59 Personal history of other complications of pregnancy, childbirth and the puerperium
CPT/HCPCS: 36415; 80055; 82565; 84450; 84460; 84520; 84550; 86787; 86803; 86850; 86900; 86901; 87389

== ENCOUNTER → 2024-11-04 06:47 | Outpatient (CLI) | payer OTHER, SELFPAY ==
--- NOTE | 2024-11-04 06:49 | DI.US.S_ITS ---
PROCEDURE: US OB >= 14 WEEKS FETUS INDICATIONS: 20 week anatomy scan OUTSIDE/PRIOR DATING DATA: Last menstrual period (LMP): 06/11/2024 LMP-based estimated date of delivery (RODRIGO): 03/18/2025 First dating scan (date and location): 08/06/2024 Estimated date of delivery (RODRIGO) from first dating scan: 03/15/2025 The calculations are made using the working RODRIGO of 03/18/2025. TECHNIQUE: Real-time scanning was performed of the fetus, with image documentation and biometric measurements. Endovaginal scanning: Not performed COMPARISON: [facility], US, OB >= 14 WEEKS FETUS, 10/04/2024, 15:20. FINDINGS: General: A single living intrauterine gestation is present. Presentation: Breech. Placenta: Placental position is anterior, without previa. Amniotic fluid index: 15.5 cm, normal range is 5-24 cm. Single deepest vertical pocket is 4.1 cm. heart rate: 152 beats per minute. Maternal cervical canal: Closed and measures 3.4 cm long. Normal lower limit is 2.5 cm. biometrics: Biparietal diameter: 4.9 cm, 20 weeks, 5 days. Head circumference: 19.3 cm, 21 weeks, 4 days. Abdominal circumference: 15.9 cm, 21 weeks, 0 day. Femur length: 3.6 cm, 21 weeks, 2 days. Clinically estimated gestational age: 20 weeks, 6 days. Composite gestational age from present scan: 21 weeks, 1 day. Estimated weight and percentile: 406 grams, 64 percent. Anatomic survey: Neuro: Ventricles are non-dilated at less than 10 mm. Cisterna magna is normal at 3-11 mm. Cerebellum is normal in size and morphology. Nuchal skin fold: Normal at less than 6 mm between 14-21 weeks gestational age. Face: Nose and lips, facial profile are normal. Spine: No evidence for spina bifida. Heart: 4-chambered heart is present, with normal ventricular outflow tracts. Diaphragm: Diaphragm is intact. Stomach: Left-sided stomach is present. Kidneys: No hydronephrosis. Normal is less than 5 mm in 2nd trimester, less than 7 mm in 3rd trimester. Cord: 3-vessel cord has orthotopic insertion. Bladder: Normal in size. Extremities: All 4 extremities identified. IMPRESSION: 1. Single live intrauterine gestation with fetus in breech presentation. heart rate is 152 beats per minute. Normal JULIA at 15.4 cm. Normal growth with estimated weight at 64 percent. 2. Normal anatomic survey. We strive to produce accurate, complete, and clear reports of imaging services. To assist us in improving patient care, this report was composed using standard report templates and voice recognition software. Therefore, it may contain abnormal punctuation, insertions and/or omissions. Occasional wrong-word or sound-alike substitutions may occur. Though we review the report and make efforts to correct it, we do recommend that the report be read carefully in proper context to recognize any text inaccuracies. Dictated by: Jose Manuel Charlton M.D. on 11/04/2024 at 13:32 Approved by: Jose Manuel Charlton M.D. on 11/04/2024 at 13:42
== END ==
PROVIDERS: PCP Nurse Practitioner; Referring Provider Obstetrics & Gynecology; Visit Provider Obstetrics & Gynecology
DX: Z36.89 Encounter for other specified antenatal screening (principal); Z3A.21 21 weeks gestation of pregnancy
CPT/HCPCS: 76811

== ENCOUNTER → 2024-12-02 10:45 | Outpatient (CLI) | payer OTHER, SELFPAY ==
[2024-12-02 12:31] LABS: Hematocrit 31.7 % (36-46)
[2024-12-02 12:53] LABS: GTT (PREG) 1 Hour PP 50gm Dose 90 mg/dL (76-139)
== END ==
PROVIDERS: PCP Nurse Practitioner; Referring Provider Specialist; Visit Provider Specialist
DX: Z34.82 Encounter for supervision of other normal pregnancy, second trimester (principal); Z3A.26 26 weeks gestation of pregnancy
CPT/HCPCS: 36415; 82950; 85014; 85018

== ENCOUNTER 2024-12-17 15:59 | Outpatient (CLI) | payer OTHER, SELFPAY | END 2024-12-17 16:42 | disposition home or self-care (01) | LOC: OB 12-20 11:06 | PROVIDERS: PCP Nurse Practitioner; Referring Provider Obstetrics & Gynecology; Visit Provider Obstetrics & Gynecology | DX: O09.293 Supervision of pregnancy with other poor reproductive or obstetric history, third trimester (principal); Z3A.31 31 weeks gestation of pregnancy | CPT/HCPCS: 59025; G0378; G0379 ==

== ENCOUNTER 2024-12-24 09:57 | Outpatient (CLI) | payer OTHER, SELFPAY | END 2024-12-24 11:20 | disposition home or self-care (01) | LOC: OB 12:39 | PROVIDERS: PCP Nurse Practitioner; Referring Provider Obstetrics & Gynecology; Visit Provider Obstetrics & Gynecology | DX: O09.293 Supervision of pregnancy with other poor reproductive or obstetric history, third trimester (principal); Z3A.32 32 weeks gestation of pregnancy; Z87.59 Personal history of other complications of pregnancy, childbirth and the puerperium | CPT/HCPCS: 59025; G0378; G0379 ==

== ENCOUNTER 2024-12-24 20:39 | Observation (INO) | payer OTHER, SELFPAY ==
[2024-12-24 21:35] LABS: Appearance Urine UA SL CLOUDY; Bilirubin Urine UA NEGATIVE (NEGATIVE); Color Urine UA YELLOW; Glucose Urine UA NEGATIVE (Negative); Ketones Urine UA TRACE (NEGATIVE); Leukocyte Esterase Urine UA TRACE (NEGATIVE); Nitrite Urine UA NEGATIVE (Negative); Occult Blood Urine UA NEGATIVE (Negative); Protein Urine UA TRACE (Negative); Specific Gravity Urine UA 1.025 (1.000-1.035); Urobilinogen Urine UA 0.2 E.U./dL (0.2)
[2024-12-24 22:08] LABS: RBC Urine None Seen (0-5/HPF); Urine Volume 10mL (spun); WBC Urine 0-1/HPF (0-5/HPF)
[2024-12-24 22:09] LABS: Bacteria Urine Few (2-10); Culture Indicated Urine Cult Not Indicated; Squamous Epithelial Cell Urine 10-30 /HPF (0-5/HPF)
[2024-12-24] MEDS: ACETAMINOPHEN 325 MG TABLET 650 MG PO (22:25)
--- NOTE | 2024-12-24 22:44 | DI.US.S_ITS ---
PROCEDURE: US OB LIMITED INDICATIONS: cervical length, evaluate for labor OUTSIDE/PRIOR DATING DATA: Last menstrual period (LMP): 06/11/2024. LMP-based estimated date of delivery (RODRIGO): 03/18/2025. First dating scan (date and location): 08/06/2024. Estimated date of delivery (RODRIGO) from first dating scan: 03/15/2025. The calculations are made using the working RODRIGO of 03/18/2025. TECHNIQUE: Real-time scanning was performed of the fetus, with image documentation and biometric measurements. Endovaginal scanning: Not performed COMPARISON: [facility], OB LIMITED, 07/19/2021, 9:04. FINDINGS: General: A single living intrauterine gestation is present. Presentation: Vertex. Placenta: Placental position is anterior. The inferior margin of the placenta is in near the cervical of as, concerning for possible marginal placenta previa. Amniotic fluid index: 7.8 cm, normal range is 5-24 cm. Single deepest vertical pocket is 4.8 cm. heart rate: 124 beats per minute. Maternal cervical canal: 6.3 cm long. Normal lower limit is 2.5 cm. IMPRESSION: Single intrauterine gestation in vertex presentation. Normal JULIA. Cervical canal measuring 7.8 cm. Query marginal placenta previa. Continued attention on follow-up imaging. Approved by: Gabriela Knight M.D.,Ph.D. on 12/25/2024 at 1:23
--- NOTE | 2024-12-24 22:54 | P.TNLD_ITS ---
Visit Information Visit Information Date of evaluation: 12/24/24 Primary OB Provider: Naz Renteria On-call OB Provider: Tyesha Ventura Comments/Additional reasons for admission: 29 yo with hx of IUFD at 30w EGA presenting with abdominal pain starting this evening around 7pm. She was close by so decided to come in for evaluation. She is not having any other sx and is feeling babdy move. She was in the car for a long time today to drive to [place] and thinks that she maybe did not drink as much water as typical. She is feeling waves of mild cramping in the pelvis. [facility] Medical History (Updated 07/26/24 @ 08:53 by Sahra Valenzuela, RN) Delivery by section using transverse incision of lower segment of uterus (~05/22/22) Adopted Blood transfusion affecting Hypertension, condition or complication demise in nash greater than 22 weeks gestation, antepartum Surgical History (Updated 08/06/24 @ 08:30 by Kate Jonas MD) [place] teeth extracted Previous section Social History (Updated 10/29/21 @ 16:28 by Maribel Page RN) marital status: number of children: 1 household members: spouse lives independently: Yes caregiver/support person: Yes housing: house pets and animals: No education level: college 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[employer]) 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/hazards: No special kulwinder needs: No travel history: recent (domestic, [place]) seatbelt use: always helmet use: Yes water heater temp set < 120 deg: Yes working smoke detector in home: Yes fire extinguisher in home: Yes carbon monox detector in home: Yes firearms in home: No do you feel safe at home: Yes Smoking Status: Never smoker second hand exposure: No alcohol intake: former (~1-2/week when not ) substance use type: does not use during the past year weight has: remained stable well-balanced diet: daily or most days daily servings fruits/ve-4 caffeine: No Type(s) of exercise: walking, bicycling and other (skiing, skateboarding) frequency: 5-6 times per week additional social history: Patient was adopted doesn't know any family history Review of Systems Review of Systems Narrative: + pelvic cramping - dysuria + movement - vaginal bleeding - vaginal discharge - SLATER - vision changes Exam Vital Signs (past 8 hours): T- 36.4 BP:105/59 P:96 Narrative Exam Narrative: GEn: well appearing, comfortable, sitting in bed CV: warm and well perfused Pulm: breathing comfortably on RA Abd: gravid Objective Labs Labs: Laboratory Results - last 24 hr 12/24/24 21:21 Urine Color Yellow Urine Appearance Sl cloudy Urine pH 6.0 Ur Specific [place] 1.025 Urine Protein Trace H Urine Glucose (UA) Negative Urine Ketones Trace H Urine Occult Blood Negative Urine Nitrate Negative Urine Bilirubin Negative Urine Urobilinogen 0.2 Ur Leukocyte Esterase Trace H Urine RBC None seen Urine WBC 0-1/hpf Ur Squamous Epith Cells 10-30 /hpf H D Urine Bacteria Few (2-10) H Ur Culture Indicated? Cult not indicated Vol Urine Centrifuged 10ml (spun) Evaluation Evaluation Baseline heart rate: 120 Variability: Moderate (11-25) monitor accelerations: Present Monitor Decelerations: Absent Comments: rare contraction wtih mild irritability Diagnosis, Plan/Disposition Plan/Disposition Plan: 29 yo with hx of IUFD at 30w EGA presenting with abdominal pain starting this evening around 7pm. FHT reactive, TOCO with rare contractions and mild irritability. Due to pelvic cramping/abdominal pain, UA and wet mount run as well as FFN while continuing to monitor. She was encouraged to continue wtih PO hydration and was given Tylenol. Tylenol an dhydration seemed to be helpful. UA showing trace protein, ketons, leks, squamous epithelial cells and few bacteria, appearing to be consistent with dirty catch. Wet mount negative. FFN negative. Cervical length nml. While on monitor, one discrete contraction visualized at 22:00 (toco bump at 22:16 pt was moving) and otherwise some mild irritability. Sx improved with tylenol, pt discharged home with return precautions OB Disposition: home
[2024-12-24 23:48] LABS: Fetal Fibronectin Negative
== END 2024-12-24 23:56 | disposition home or self-care (01) ==
LOC: LABOR 20:41
PROVIDERS: Admitting Provider Family Medicine; PCP Nurse Practitioner; Referring Provider Family Medicine; Visit Provider Family Medicine
DX: O26.893 Other specified pregnancy related conditions, third trimester (principal); R10.9 Unspecified abdominal pain; R10.2 Pelvic and perineal pain; Z3A.30 30 weeks gestation of pregnancy
CPT/HCPCS: 59025; 59050; 76815; 81003; 81015; 82731; 87210; G0378; G0379

== ENCOUNTER 2024-12-30 09:30 | Outpatient (CLI) | payer OTHER, SELFPAY ==
--- NOTE | 2024-12-30 10:03 | PM.OBTRLD ---
Visit Information Visit Information Date of evaluation: 12/30/24 Primary OB Provider: Naz Renteria On-call OB Provider: Kate Jonas Reason for Evaluation: Yes non-stress test non-stress test reason: other (History of 30 week demise from abruption/preeclampsia) [facility] Medical History (Updated 12/30/24 @ 10:04 by Kate Jonas MD) Delivery by section using transverse incision of lower segment of uterus (~05/22/22) Adopted Blood transfusion affecting Hypertension, condition or complication demise in nash greater than 22 weeks gestation, antepartum Surgical History (Updated 08/06/24 @ 08:30 by Kate Jonas MD) [place] teeth extracted Previous section Social History (Updated 10/29/21 @ 16:28 by Maribel Page RN) marital status: number of children: 1 household members: spouse lives independently: Yes caregiver/support person: Yes housing: house pets and animals: No education level: college 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[employer]) 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/hazards: No special kulwinder needs: No travel history: recent (domestic, [place]) seatbelt use: always helmet use: Yes water heater temp set < 120 deg: Yes working smoke detector in home: Yes fire extinguisher in home: Yes carbon monox detector in home: Yes firearms in home: No do you feel safe at home: Yes Smoking Status: Never smoker second hand exposure: No alcohol intake: former (~1-2/week when not ) substance use type: does not use during the past year weight has: remained stable well-balanced diet: daily or most days daily servings fruits/ve-4 caffeine: No Type(s) of exercise: walking, bicycling and other (skiing, skateboarding) frequency: 5-6 times per week additional social history: Patient was adopted doesn't know any family history Evaluation Evaluation Baseline heart rate: 150 Variability: Moderate (11-25) monitor accelerations: Present Monitor Decelerations: Variable (Consistent with early gestation) Contraction Frequency (minutes): 0 Category of Tracing: Appropriate for gestational age Diagnosis, Plan/Disposition Final Diagnosis (1) History of stillbirth: Status: Acute (2) History of pre-eclampsia: Status: Acute (3) 28 weeks gestation of : Status: Acute Plan/Disposition Plan: Patient normal JULIA and good movement tone and breathing by ultrasound in the office. Reassuring NST. Weekly NSTs and biophysical profiles.
== END 2024-12-30 10:21 | disposition home or self-care (01) ==
LOC: LABOR 10:18 → OB 15:04
PROVIDERS: PCP Nurse Practitioner; Referring Provider Obstetrics & Gynecology; Visit Provider Obstetrics & Gynecology
DX: O09.293 Supervision of pregnancy with other poor reproductive or obstetric history, third trimester (principal); Z3A.28 28 weeks gestation of pregnancy; Z87.59 Personal history of other complications of pregnancy, childbirth and the puerperium
CPT/HCPCS: 59025; G0378; G0379

== ENCOUNTER 2025-01-06 15:37 | Outpatient (CLI) | payer OTHER, SELFPAY ==
--- NOTE | 2025-01-06 16:13 | PM.OBTRLD ---
Visit Information Visit Information Date of evaluation: 01/06/25 Primary OB Provider: Kate Jonas Reason for Evaluation: Yes non-stress test non-stress test reason: other (Prior 30 week severe preeclamptic demise) [facility] Medical History (Updated 01/06/25 @ 15:32 by Kate Jonas MD) Delivery by section using transverse incision of lower segment of uterus (~05/22/22) Adopted Blood transfusion affecting Hypertension, condition or complication demise in nash greater than 22 weeks gestation, antepartum Surgical History (Updated 08/06/24 @ 08:30 by Kate Jonas MD) [place] teeth extracted Previous section Social History (Updated 10/29/21 @ 16:28 by Maribel Page RN) marital status: number of children: 1 household members: spouse lives independently: Yes caregiver/support person: Yes housing: house pets and animals: No education level: college 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[employer]) 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/hazards: No special kulwinder needs: No travel history: recent (domestic, [place]) seatbelt use: always helmet use: Yes water heater temp set < 120 deg: Yes working smoke detector in home: Yes fire extinguisher in home: Yes carbon monox detector in home: Yes firearms in home: No do you feel safe at home: Yes second hand exposure: No alcohol intake: former (~1-2/week when not ) substance use type: does not use during the past year weight has: remained stable well-balanced diet: daily or most days daily servings fruits/ve-4 caffeine: No Type(s) of exercise: walking, bicycling and other (skiing, skateboarding) frequency: 5-6 times per week additional social history: Patient was adopted doesn't know any family history Evaluation Evaluation Baseline heart rate: 135 Variability: Moderate (11-25) monitor accelerations: Present Monitor Decelerations: Absent Contraction Frequency (minutes): 0 Diagnosis, Plan/Disposition Final Diagnosis (1) 29 weeks gestation of : Status: Acute (2) History of section complicating : Status: Acute (3) Supervision of with other poor reproductive or obstetric history, unspecified trimester: Status: Acute (4) History of stillbirth: Status: Acute (5) History of pre-eclampsia: Status: Acute Plan/Disposition Plan: Reactive nonstress test. Blood pressure and biophysical profile normal in the office. Continue weekly nonstress tests. OB Disposition: home
== END 2025-01-06 16:18 | disposition home or self-care (01) ==
LOC: OB 01-07 09:21
PROVIDERS: PCP Nurse Practitioner; Referring Provider Obstetrics & Gynecology; Visit Provider Obstetrics & Gynecology
DX: O09.293 Supervision of pregnancy with other poor reproductive or obstetric history, third trimester (principal); Z87.59 Personal history of other complications of pregnancy, childbirth and the puerperium; O34.219 Maternal care for unspecified type scar from previous cesarean delivery; Z3A.29 29 weeks gestation of pregnancy
CPT/HCPCS: 59025; G0378; G0379

== ENCOUNTER 2025-01-14 09:53 | Outpatient (CLI) | payer OTHER, SELFPAY ==
--- NOTE | 2025-01-14 10:29 | P.TNLD_ITS ---
Visit Information Visit Information Date of evaluation: 01/14/25 Primary OB Provider: Kate Jonas Reason for Evaluation: Yes non-stress test non-stress test reason: other (Prior 30 week demise from severe preeclampsia) [facility] Medical History (Updated 01/14/25 @ 09:52 by Kate Jonas MD) Delivery by section using transverse incision of lower segment of uterus (~05/22/22) Adopted Blood transfusion affecting Hypertension, condition or complication demise in nash greater than 22 weeks gestation, antepartum Surgical History (Updated 08/06/24 @ 08:30 by Kate Jonas MD) [place] teeth extracted Previous section Social History (Updated 10/29/21 @ 16:28 by Maribel Page RN) marital status: number of children: 1 household members: spouse lives independently: Yes caregiver/support person: Yes housing: house pets and animals: No education level: college 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[employer]) 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/hazards: No special kulwinder needs: No travel history: recent (domestic, [place]) seatbelt use: always helmet use: Yes water heater temp set < 120 deg: Yes working smoke detector in home: Yes fire extinguisher in home: Yes carbon monox detector in home: Yes firearms in home: No do you feel safe at home: Yes second hand exposure: No alcohol intake: former (~1-2/week when not ) substance use type: does not use during the past year weight has: remained stable well-balanced diet: daily or most days daily servings fruits/ve-4 caffeine: No Type(s) of exercise: walking, bicycling and other (skiing, skateboarding) frequency: 5-6 times per week additional social history: Patient was adopted doesn't know any family history Evaluation Evaluation Baseline heart rate: 135 Variability: Moderate (11-25) monitor accelerations: Present Monitor Decelerations: Absent Contraction Frequency (minutes): 0 Category of Tracing: Reactive Status: Category l Diagnosis, Plan/Disposition Final Diagnosis (1) 31 weeks gestation of : Status: Acute (2) History of section complicating : Status: Acute (3) Supervision of with other poor reproductive or obstetric history, unspecified trimester: Status: Acute (4) History of stillbirth: Status: Acute (5) History of pre-eclampsia: Status: Acute Plan/Disposition Plan: Continue weekly nonstress tests and biophysical profiles OB Disposition: home
== END 2025-01-14 10:30 | disposition home or self-care (01) ==
LOC: OB 11:13
PROVIDERS: PCP Nurse Practitioner; Referring Provider Obstetrics & Gynecology; Visit Provider Obstetrics & Gynecology
DX: O09.293 Supervision of pregnancy with other poor reproductive or obstetric history, third trimester (principal); O34.219 Maternal care for unspecified type scar from previous cesarean delivery; Z3A.31 31 weeks gestation of pregnancy; Z87.59 Personal history of other complications of pregnancy, childbirth and the puerperium
CPT/HCPCS: 59025; G0378; G0379

== ENCOUNTER 2025-01-21 08:18 | Outpatient (CLI) | payer OTHER, SELFPAY ==
--- NOTE | 2025-01-21 09:07 | PM.OBTRLD ---
Visit Information Visit Information Date of evaluation: 01/21/25 Primary OB Provider: Kate Jonas Reason for Evaluation: Yes non-stress test non-stress test reason: other (History of still from severe preeclampsia) Vital Signs Vital Signs: Blood pressure 124/83, temperature 36.2?, pulse of 88 [facility] Medical History (Updated 01/21/25 @ 09:09 by Kate Jonas MD) Delivery by section using transverse incision of lower segment of uterus (~05/22/22) Adopted Blood transfusion affecting Hypertension, condition or complication demise in nash greater than 22 weeks gestation, antepartum Surgical History (Updated 08/06/24 @ 08:30 by Kate Jonas MD) [place] teeth extracted Previous section Social History (Updated 10/29/21 @ 16:28 by Maribel Page RN) marital status: number of children: 1 household members: spouse lives independently: Yes caregiver/support person: Yes housing: house pets and animals: No education level: college 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[employer]) 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/hazards: No special kulwinder needs: No travel history: recent (domestic, [place]) seatbelt use: always helmet use: Yes water heater temp set < 120 deg: Yes working smoke detector in home: Yes fire extinguisher in home: Yes carbon monox detector in home: Yes firearms in home: No do you feel safe at home: Yes Smoking Status: Never smoker second hand exposure: No alcohol intake: former (~1-2/week when not ) substance use type: does not use during the past year weight has: remained stable well-balanced diet: daily or most days daily servings fruits/ve-4 caffeine: No Type(s) of exercise: walking, bicycling and other (skiing, skateboarding) frequency: 5-6 times per week additional social history: Patient was adopted doesn't know any family history Evaluation Evaluation Baseline heart rate: 130 Variability: Moderate (11-25) monitor accelerations: Present Monitor Decelerations: Absent Category of Tracing: Reactive Status: Category l Diagnosis, Plan/Disposition Final Diagnosis (1) 32 weeks gestation of : Status: Acute (2) Supervision of with other poor reproductive or obstetric history, unspecified trimester: Status: Acute (3) History of stillbirth: Status: Acute (4) History of pre-eclampsia: Status: Acute (5) History of section complicating : Status: Acute Plan/Disposition Plan: Office visit for biophysical profile OB Disposition: home
== END 2025-01-21 08:58 | disposition home or self-care (01) ==
LOC: LABOR 08:30 → OB 11:23
PROVIDERS: PCP Nurse Practitioner; Referring Provider Specialist; Visit Provider Specialist
DX: O09.293 Supervision of pregnancy with other poor reproductive or obstetric history, third trimester (principal); O34.219 Maternal care for unspecified type scar from previous cesarean delivery; Z3A.32 32 weeks gestation of pregnancy; Z87.59 Personal history of other complications of pregnancy, childbirth and the puerperium
CPT/HCPCS: 59025; G0378; G0379

== ENCOUNTER 2025-01-26 15:51 | Outpatient (CLI) | payer OTHER, SELFPAY ==
--- NOTE | 2025-01-26 16:19 | PM.OBTRLD ---
Visit Information Visit Information Date of evaluation: 01/26/25 Reason for Evaluation: Yes non-stress test non-stress test reason: other (Previous 30 week demise) Vital Signs Vital Signs: Blood pressure 105/60, pulse 93, temperature 36.6? [facility] Medical History (Updated 01/21/25 @ 09:09 by Kate Jonas MD) Delivery by section using transverse incision of lower segment of uterus (~05/22/22) Adopted Blood transfusion affecting Hypertension, condition or complication demise in nash greater than 22 weeks gestation, antepartum Surgical History (Updated 08/06/24 @ 08:30 by Kate Jonas MD) [place] teeth extracted Previous section Social History (Updated 10/29/21 @ 16:28 by Maribel Page RN) marital status: number of children: 1 household members: spouse lives independently: Yes caregiver/support person: Yes housing: house pets and animals: No education level: college 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[employer]) 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/hazards: No special kulwinder needs: No travel history: recent (domestic, [place]) seatbelt use: always helmet use: Yes water heater temp set < 120 deg: Yes working smoke detector in home: Yes fire extinguisher in home: Yes carbon monox detector in home: Yes firearms in home: No do you feel safe at home: Yes second hand exposure: No alcohol intake: former (~1-2/week when not ) substance use type: does not use during the past year weight has: remained stable well-balanced diet: daily or most days daily servings fruits/ve-4 caffeine: No Type(s) of exercise: walking, bicycling and other (skiing, skateboarding) frequency: 5-6 times per week additional social history: Patient was adopted doesn't know any family history Evaluation Evaluation Baseline heart rate: 130 Variability: Moderate (11-25) monitor accelerations: Present Monitor Decelerations: Absent Contraction Frequency (minutes): 0 Status: Category l Diagnosis, Plan/Disposition Final Diagnosis (1) 32 weeks gestation of : Status: Acute (2) History of section complicating : Status: Acute (3) Supervision of with other poor reproductive or obstetric history, unspecified trimester: Status: Acute (4) History of stillbirth: Status: Acute (5) History of pre-eclampsia: Status: Acute Plan/Disposition Plan: Reactive nonstress test, 05/13 biophysical profile in office with JULIA of 14 continue weekly evaluation OB Disposition: home
== END 2025-01-26 16:23 | disposition home or self-care (01) ==
LOC: LABOR 16:10 → OB 01-27 13:09
PROVIDERS: PCP Nurse Practitioner; Referring Provider Specialist; Visit Provider Specialist
DX: O09.293 Supervision of pregnancy with other poor reproductive or obstetric history, third trimester (principal); O34.219 Maternal care for unspecified type scar from previous cesarean delivery; Z3A.32 32 weeks gestation of pregnancy; Z87.59 Personal history of other complications of pregnancy, childbirth and the puerperium
CPT/HCPCS: 59025; G0378; G0379

== ENCOUNTER 2025-02-04 10:23 | Outpatient (CLI) | payer OTHER, SELFPAY ==
[2025-02-04 10:38] VITALS: BP 111/66
== END 2025-02-04 11:12 | disposition home or self-care (01) ==
LOC: LABOR 10:37 → OB 02-08 15:22
PROVIDERS: PCP Nurse Practitioner; Referring Provider Obstetrics & Gynecology; Visit Provider Obstetrics & Gynecology
DX: O60.03 Preterm labor without delivery, third trimester (principal); O09.293 Supervision of pregnancy with other poor reproductive or obstetric history, third trimester; Z87.51 Personal history of pre-term labor; Z3A.34 34 weeks gestation of pregnancy
CPT/HCPCS: 59025; G0378; G0379

== ENCOUNTER 2025-02-11 11:47 | Outpatient (CLI) | payer OTHER, SELFPAY | END 2025-02-11 12:26 | disposition home or self-care (01) | LOC: OB 13:19 | PROVIDERS: PCP Nurse Practitioner; Referring Provider Obstetrics & Gynecology; Visit Provider Obstetrics & Gynecology | DX: O09.293 Supervision of pregnancy with other poor reproductive or obstetric history, third trimester (principal); Z3A.35 35 weeks gestation of pregnancy; Z87.51 Personal history of pre-term labor | CPT/HCPCS: 59025; G0378; G0379 ==

== ENCOUNTER 2025-02-18 14:21 | Outpatient (CLI) | payer OTHER, SELFPAY | END 2025-02-18 14:55 | disposition home or self-care (01) | LOC: OB 15:34 | PROVIDERS: PCP Nurse Practitioner; Referring Provider Obstetrics & Gynecology; Visit Provider Obstetrics & Gynecology | DX: O09.293 Supervision of pregnancy with other poor reproductive or obstetric history, third trimester (principal); Z3A.36 36 weeks gestation of pregnancy; Z87.59 Personal history of other complications of pregnancy, childbirth and the puerperium | CPT/HCPCS: 59025; G0378; G0379 ==

== ENCOUNTER → 2025-02-18 14:22 | Outpatient (CLI) | payer OTHER, SELFPAY ==
[2025-02-19 14:09] LABS: Strep Grp B PCR NEG for Grp B Strep
== END ==
LOC: LAB 14:23
PROVIDERS: PCP Nurse Practitioner; Visit Provider Obstetrics & Gynecology
DX: O09.293 Supervision of pregnancy with other poor reproductive or obstetric history, third trimester (principal); Z87.59 Personal history of other complications of pregnancy, childbirth and the puerperium; Z3A.36 36 weeks gestation of pregnancy
CPT/HCPCS: 59025; 87653

== ENCOUNTER 2025-02-25 05:47 | Inpatient (IN) | payer OTHER, SELFPAY ==
[2025-02-25 06:29] LABS: Add Manual Diff / Slide Review NO; Basophils Absolute Auto 0 /uL (0-100); Basophils Percent Auto 0.3 % (0-2); Eosinophils Absolute Auto 100 /uL (0-450); Eosinophils Percent Auto 1.2 % (2-4); Hematocrit 31.6 % (36-46); Hemoglobin 10.7 g/dL (12.0-16.0); Lymphocytes Absolute Auto 1800 /uL (1100-4500); Lymphocytes Percent Auto 23.2 % (25-40); Mean Corpuscular Hemoglobin 31.6 PG (26-34); Mean Corpuscular Volume 92.8 fL (80-100); Monocytes Absolute Auto 600 /uL (0-900); Monocytes Percent Auto 7.3 % (3-14); Neutrophils Absolute Auto 5300 /uL (1500-7000); Platelet Count 212 X10^3/uL (150-400); Red Cell Distribution Width 13.5 % (11.6-14.8); White Blood Cell Count 7.7 X10^3/uL (4.5-11.0)
[2025-02-25] MEDS: CITRIC ACID/SODIUM CITRATE 15 ML SOLUTION 30 ML PO (06:51)
[2025-02-25] MEDS: LACTATED RINGERS 1,000 ML 999 ML IV (07:00)
--- NOTE | 2025-02-25 07:22 | PM.OBHP.IH.1 ---
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 Estimated Delivery Date Method Current WG Current Estimate 03/18/25 LMP (Certain) 37w 0d Estimated Gestational Age (weeks): 37 : 3 Para: 2 care: good care, initiated at week # (8), number of visits (14) and pounds weight gain (21) Dating criteria OB: LMP confirmed by 1st trimester US Ultrasounds: normal 1st trimester US and normal mid trimester US Obstetrical complications: none Medical complications OB: none Narrative: h/o IUFD at 30 weeks Indications Operative indications ( section): previous uterine surgery Preadmission Labs Last OB Lab Results: Blood Type A Positive 02/25/25 06:16 Antibody Screen Negative 02/25/25 06:16 Hct 31.6 % (36-46) L 02/25/25 06:16 Hgb 10.7 g/dL (12.0-16.0) L 02/25/25 06:16 Hep Bs Antigen Negative s/c (NEGATIVE) 09/06/24 14:57 Hepatitis C Antibody Negative s/c (NEGATIVE) 09/06/24 14:57 Rubella Antibody 48.4 IU/mL (>15) 09/06/24 14:57 VZV IgG Antibody Reactive (Non Reactive) 09/06/24 14:57 Glucose 1 Hr 50 gm 90 mg/dL (76-139) 12/02/24 12:06 Group B Strep (PCR) Neg for grp b strep 02/18/25 14:22 -: Chlamydia screen: negative, Gonorrhea screen: negative and Urine: negative -: PAP smear: Normal Genetic Screens: Cell-free DNA: Normal External Labs -: Urine: negative Prior (ies) Past Pregnancies Del. Date GA/Weeks Labor Lgth Wt Sex Route Outcome Anesthesia Place Delv Breastfeed Preg Comp Name 07/21/21 30 1 Male vaginal still IH pre-eclampsia placental abruption [place] 05/22/22 37 26 7 lb 6 oz Male live - full term epidural IH 7 months (pumped & bottle) failure to progress [facility] Delivery Date: 07/21/21 Last Updated by: Maribel Page R.N. Severe Preeclampsia, placental abruption, demise. Had balloon inserted, Pitocin and AROM. Passed large clot post delivery, required blood transfusion. Delivery Date: 05/22/22 Last Updated by: Sahra Valenzuela RN Failed vacuum and foreceps, CPD->C/S Hx # Term Pregnancies: 2 Hx # Pregnancies: 1 Number of Living Children: 1 Multiple births: 0 Spontaneous abortions: 0 Ectopic pregnancies: 0 Elective abortions: 0 Evaluation Evaluation Baseline heart rate: 135 Variability: Moderate (11-25) monitor accelerations: Present Monitor Decelerations: Absent [facility] Medical History (Updated 02/20/25 @ 21:43 by Naz Renteria MD) Delivery by section using transverse incision of lower segment of uterus (~05/22/22) Adopted Blood transfusion affecting Hypertension, condition or complication demise in [place] greater than 22 weeks gestation, antepartum Surgical History (Updated 08/06/24 @ 08:30 by Kate Jonas MD) [place] teeth extracted Previous section Social History (Updated 10/29/21 @ 16:28 by Maribel Page RN) marital status: number of children: 1 household members: spouse lives independently: Yes caregiver/support person: Yes housing: house pets and animals: No education level: college 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[employer]) 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/hazards: No special kulwinder needs: No travel history: recent [facility] [place]) seatbelt use: always helmet use: Yes water heater temp set < 120 deg: Yes working smoke detector in home: Yes fire extinguisher in home: Yes carbon monox detector in home: Yes firearms in home: No do you feel safe at home: Yes Smoking Status: Never smoker second hand exposure: No alcohol intake: former (~1-2/week when not ) substance use type: does not use during the past year weight has: remained stable well-balanced diet: daily or most days daily servings fruits/ve-4 caffeine: No Type(s) of exercise: walking, bicycling and other (skiing, skateboarding) frequency: 5-6 times per week additional social history: Patient was adopted doesn't know any family history Meds Home Medications and Allergies Home Medications Medication Instructions Recorded Confirmed Type aspirin 81 mg tablet,delayed 81 mg PO DAILY 07/26/24 02/25/25 History release vitamin-ferrous sulfate tab PO 07/26/24 02/11/25 History 27 mg iron-folic acid 0.8 mg tablet Allergies Allergy/AdvReac Type Severity Reaction Status Date / Time Latex, Natural Rubber Allergy Mild ITCHING Verified 02/11/25 11:21 lactose AdvReac Mild Abdominal Verified 02/11/25 11:21 Pain OB Exam Narrative Exam Narrative: Generally: Patient is sitting up in bed, no acute distress Lungs: Clear to auscultation bilaterally Cardiovascular: Regular rate and rhythm Fundal height: 37 cm Estimated weight: 6-1/2 lb Extremities: No edema Objective Labs 02/25/25 06:16 Labs: Laboratory Results - last 24 hr 02/25/25 06:16 WBC 7.7 RBC 3.40 L Hgb 10.7 L Hct 31.6 L MCV 92.8 MCH 31.6 MCHC 34.0 RDW 13.5 Plt Count 212 Neut % (Auto) 68.0 Lymph % (Auto) 23.2 L [place] % (Auto) 7.3 Eos % (Auto) 1.2 L Baso % (Auto) 0.3 Neut # (Auto) 5300 Lymph # (Auto) 1800 [place] # (Auto) 600 Eos # (Auto) 100 Baso # (Auto) 0 Blood Type A Positive Antibody Screen Negative Assessment and Plan Assessment and Plan Assessment and Plan narrative: Assessment: 30-year-old 3 para 1101 at 37 weeks gestation with a history of an intrauterine demise at 30 weeks Previous section Keloid scar Plan: Repeat low-transverse section with scar revision The risks, benefits, and alternatives to the procedure were explained to the patient. The risks including bleeding, infection, injury to the bowel, bladder, or ureters. She understands these risks and agrees to proceed. A full par Q was held and consent form was signed. Time-Based Coding :: [TOTAL MINUTES] spent with patient and on the chart (including review of chart, obtaining history, exam, reviewing outside data, placing orders, documenting exam and treatment plan, and counseling patient) on [DATE].
--- NOTE | 2025-02-25 07:28 | PM.PREOP ---
Pre-operative Note Interval Note History & Physical reviewed/Exam performed by Physician: Yes Changes to H&P: No H&P completed within 30 days and has changed as indicated here:: 02/25/25
[2025-02-25] MEDS: CEFAZOLIN 2 GM/100 ML PREMIX 100 ML IV (08:00)
[2025-02-25] MEDS: ACETAMINOPHEN IV 1,000 MG/100 ML VIAL 400 MG IV (08:10)
--- NOTE | 2025-02-25 08:26 | SUR.OPER ---
Supine on Padded OR bed, head on pillow, safety belt at thigh, arms secured on padded arm boards at <90 degrees abduction. Bump under right buttock. Legs uncrossed with pillow under knees, gel pad to heels, tape over blanket to lower legs.
[2025-02-25] MEDS: TRIAMCINOLONE 40 MG/ML VIAL IM (08:50)
--- NOTE | 2025-02-25 08:54 | SUR.OPER ---
FHT after spinal 130, non latex nguyen placed at 0812 with sterile technique. Viable baby girl born at 0835, placenta delivered at 0838. Cord blood and placenta handed off to L&D RN Janette.
--- NOTE | 2025-02-25 09:01 | SUR.OPER ---
Per L&D RN scores 8/9.
[2025-02-25 09:21] VITALS: BP 108/66; PULSE 74; RESP 19; TEMP 36.7; O2SAT 100
[2025-02-25 09:28] VITALS: BP 108/66; PULSE 72; RESP 13; O2SAT 100
[2025-02-25 09:33] VITALS: BP 112/70; PULSE 69; RESP 16; O2SAT 100
--- NOTE | 2025-02-25 09:46 | PM.OBCS.1 ---
Operative Date/Time/Diagnoses Date of procedure: 02/25/25 Time of procedure: 09:46 Pre-op diagnosis: Thirty-seven weeks' gestation Previous intrauterine demise Previous section Keloid scar Post-op diagnosis: same Procedure & Clinicians Procedure: Repeat low transverse section Keloid scar revision Same procedure as scheduled: Yes Indications: 30-year-old 3 para 1101 at 37 weeks' gestation with a previous intrauterine demise at 30 weeks' gestation. She has a previous section. She has a keloid scar. Surgeon: Naz Renteria Click Yes if Unassisted: No Deep Submergence Vehicle Operator: John Gilliam Reason for Deep Submergence Vehicle Operator: The billing assistant was necessary to retract upon entry into the abdomen and uterus. He assisted with delivery with fundal pressure. He assisted with closure with retraction, clipping of suture, and closure of the contralateral fascia. Anesthesia Type: Spinal (with Duramorph) Operative Notes Findings: Live female infant in the MEL presentation Normal uterus, tubes, and ovaries Narrow pelvic inlet Closure Type: primary Specimen(s): cord blood and placenta Intraoperative meds administered: Acetaminophen, Duramorph, Ketorolac and Pitocin Applied: Catheter (To continuous drainage) Estimated Blood Loss (mL): 100 Blood products transfused: none Procedure in detail: The patient was taken to the operating room where she was placed in the seated position. Spinal anesthesia with Duramorph was administered. The patient was then placed in the dorsal supine position with a leftward tilt. She was prepped and draped in the usual sterile fashion. A timeout was performed. After spinal analgesia was found to be adequate, the previous Pfannenstiel incision was excised in an elliptical fashion. This incision was then carried through to the underlying layer fascia. The fascia was nicked in the midline, and the incision extended bilaterally with the Oconnell scissors. The superior aspect of the fascial incision was grasped with a [place] clamps, elevated, and the underlying rectus muscles dissected off sharply and bluntly. Attention was then turned to the inferior aspect of this incision which in a similar fashion was grasped with a [place] clamps, elevated, and the underlying rectus muscles dissected off sharply and bluntly. The rectus muscles were in the midline. The peritoneum was identified, grasped between 2 hemostats, and entered sharply with the Metzenbaum scissors. This incision was extended superiorly and inferiorly with good visualization of the bladder. The bladder blade was inserted. The vesicouterine peritoneum was identified, grasped with the pickup, and entered sharply with the Metzenbaum scissors. This incision was extended bilaterally, and the bladder flap was created digitally. The bladder blade was reinserted. The lower uterine segment was incised in a transverse fashion with the scalpel. Upon entering the amniotic sac there was moderate amount of clear amniotic fluid. Difficulty was encountered in delivering the head. The infant's head was delivered with vacuum assistance. The nose and mouth were suctioned with bulb suction. The remainder of the body delivered without difficulty. The cord was double clamped and cut after 1 minute. The infant was handed off to waiting RN and RT. The placenta was delivered by expression. The uterus was cleared of all clots and debris. The uterine incision was repaired with #1 chromic in a running interlocking fashion, and a second layer the same suture was used for an imbricating layer. Hemostasis was achieved. There was a small hematoma on the right edge of the uterine incision. This was observed and there was no extension of the hematoma. The tubes and ovaries were examined and were found to be normal. The gutters were cleared of all clots and debris. The bladder flap was reapproximated using 2-0 Vicryl in a running fashion. The parietal peritoneum was closed using 2-0 Vicryl in a running fashion. The fascia was reapproximated using 0 Vicryl in a running fashion. The subcutaneous layer was copiously irrigated with warm normal saline. 5 simple interrupted sutures of 3-0 Vicryl were placed to reapproximate the subcutaneous layer. The skin was closed with 4-0 Monocryl in a subcuticular fashion. Steri-Strips were placed. An Aquacell dressing was placed. The uterus was expressed of a small amount of old blood. Sponge, lap, and instrument counts were correct x-2. The patient tolerated the procedure well, and was taken to PACU in stable condition. Complications: none Baby 1: Delivery Date: 02/25/25 Delivery Time: 08:35 Infant Gender: Female Presentation: vertex Position: Left Occiput Anterior Placental Delivery Description: Expressed Cord Vessel Description: 3 Vessels and Clamped/Cut (After 1 minute) score (1 min): 8 score (5 min): 9 weight: 6 lb 6.5 oz Post-operative Condition: stable Disposition: PACU Aftercare: routine postop
[2025-02-25] MEDS: ONDANSETRON 4 MG/2 ML INJ IV (13:34)
[2025-02-25] MEDS: KETOROLAC 30 MG/ML VIAL IV ×2 (15:03→22:13)
[2025-02-25] MEDS: ACETAMINOPHEN 325 MG TABLET 650 MG PO (22:13)
[2025-02-26] MEDS: KETOROLAC 30 MG/ML VIAL IV (04:25)
[2025-02-26] MEDS: ACETAMINOPHEN 325 MG TABLET 650 MG PO ×2 (04:26→10:24)
[2025-02-26 06:39] LABS: Add Manual Diff / Slide Review NO; Basophils Absolute Auto 0 /uL (0-100); Basophils Percent Auto 0.2 % (0-2); Eosinophils Absolute Auto 0 /uL (0-450); Eosinophils Percent Auto 0.4 % (2-4); Hemoglobin 9.2 g/dL (12.0-16.0); Lymphocytes Absolute Auto 1700 /uL (1100-4500); Lymphocytes Percent Auto 16.8 % (25-40); Mean Corpuscular HGB Conc 34.2 % (30-36); Mean Corpuscular Hemoglobin 31.4 PG (26-34); Mean Corpuscular Volume 91.9 fL (80-100); Monocytes Absolute Auto 700 /uL (0-900); Monocytes Percent Auto 6.9 % (3-14); Neutrophils Absolute Auto 7800 /uL (1500-7000); Neutrophils Percent Auto 75.7 % (50-75); Platelet Count 190 X10^3/uL (150-400); Red Blood Cell Count 2.94 X10^6/uL (4.0-5.2); Red Cell Distribution Width 13.3 % (11.6-14.8); White Blood Cell Count 10.2 X10^3/uL (4.5-11.0)
[2025-02-26 09:45] VITALS: BP 106/56; PULSE 96; RESP 17; TEMP 37.1
[2025-02-26] MEDS: LANOLIN OINT 7 GM 1 APPLIC TOP (10:20)
[2025-02-26] MEDS: DOCUSATE 100 MG CAPSULE PO (10:21)
[2025-02-26] MEDS: PRENATAL VIT,CALC/IRON/FOLIC 1 TABLET 1 TAB PO (10:21)
[2025-02-26] MEDS: IBUPROFEN 600 MG TABLET PO (10:22)
--- NOTE | 2025-02-26 12:23 | P.DS_ITS ---
Discharge Providers Provider Date of admission: 02/25/25 05:47 Discharge Date: 02/26/25 Primary care physician: ARMAND Kimble Consults: 02/25/25 09:[address] Contractor Routine Comment: Discharge provider: Naz Renteria MD Summary Hospital Course Date Patient Seen: 02/26/25 Time Patient Seen: 07:30 Diagnoses: Thirty-seven weeks' gestation Previous intrauterine demise at 30 weeks Previous section Keloid scar Repeat low transverse section Keloid scar revision Hospital Course: Patient is a 30-year-old 3 para 2102 who presented on February 25, 2025 for a scheduled repeat section and keloid scar revision at 37 weeks' gestation. She underwent this procedure without complication. Her Parisi catheter was removed on postop day # 0. She has been able to void without the catheter. No nausea or vomiting. Pain is well controlled with Toradol and Tylenol. Bleeding is tapering. going okay. Baby has a tongue tie which will be clipped today. She is ambulating without assistance. She has tolerating a diet. Peripartum Data Delivery Method: Section (Repeat and scar revision) Procedures: Spinal anesthesia Repeat low transverse section Keloid scar revision complications: none [place] 1: Gender: Female Disposition of : home Status at Discharge Cognitive/behavioral status at discharge: oriented Functional status at discharge: independent ambulation Overall status at discharge: patient is progressing back to baseline Time Spent with Patient Time attestation: Total time spent providing and/or coordinating discharge services: Time spent: Less than 30 minutes Objective Labs 02/26/25 06:11 Labs: Laboratory Results - last 24 hr 02/26/25 06:11 WBC 10.2 RBC 2.94 L Hgb 9.2 L Hct 27.0 L MCV 91.9 MCH 31.4 MCHC 34.2 RDW 13.3 Plt Count 190 Neut % (Auto) 75.7 H Lymph % (Auto) 16.8 L [place] % (Auto) 6.9 Eos % (Auto) 0.4 L Baso % (Auto) 0.2 Neut # (Auto) 7800 H Lymph # (Auto) 1700 [place] # (Auto) 700 Eos # (Auto) 0 Baso # (Auto) 0 Exam Vital Signs (past 8 hours): - 02/26/25 09:45 Temperature 98.7 F Pulse Rate 96 H Respiratory Rate 17 Blood Pressure 106/56 L Oxygen Delivery Method Room Air Narrative Exam Narrative: Generally: Patient walking around in room, no acute distress Lungs: Clear to auscultation bilaterally Cardiovascular: Regular rate and rhythm Fundus: Firm at U Incision: Clean dry and intact with Aquacel dressing Extremities: No edema, negative [place] Discharge Plan Discharge Plan Patient Disposition: Home Provider Discharge Comment: Call with fever, chills, redness or drainage around the incision, or bleeding vaginally more than a pad in an hour Ibuprofen 600 mg every 6 hours as needed for cramping Tylenol 650 mg every 6 hours as needed for pain Push oral fluids Stool softener as needed Discharge orders & Medications Prescriptions: New oxycodone 5 mg tablet 5 mg PO Q6H PRN (Reason: pain) Qty: 10 0RF Continued vit-ferrous sulfat-FA 27 mg iron- 0.8 mg tablet PO Discontinued aspirin 81 mg tablet,delayed release (DR/EC) 81 mg PO DAILY Follow up/Referrals: Naz Renteria MD [Physician] - (Incision check on 03/04/25 @ 1100am 6 weeks post appt on 04/13/2025 @1100) Diet/Activity/Treatments Diet: Regular Activity: No heavy lifting, nothing more than the baby Nothing in the vagina for 6 weeks Skin/Wound/Dressing Care Report to your healthcare provider any signs of infection, such as:: chills, fever, increased pain, unusual drainage and unusual redness Dressing: Do not remove Visit Report/Discharge Packet Instructions: DI for , DI for Prescription Opioid Use Stand Alone Forms: Discharge: Care, Patient Portal/API, Stroke Signs & Symptoms Discharge Data Primary Care Provider: Lorrie Hutchins
== END 2025-02-26 11:25 | disposition home or self-care (01) | DRG 540 ==
PROVIDERS: Admitting Provider Obstetrics & Gynecology; PCP Nurse Practitioner; Referring Provider Obstetrics & Gynecology; Visit Provider Obstetrics & Gynecology
PROC: 10D00Z1 Extraction of Products of Conception, Low, Open Approach (ICD-10-PCS; CPT 59514; principal; 2025-02-25 07:45)
DX: O34.211 Maternal care for low transverse scar from previous cesarean delivery (principal); Z3A.37 37 weeks gestation of pregnancy; Z37.0 Single live birth; Z87.59 Personal history of other complications of pregnancy, childbirth and the puerperium; L91.0 Hypertrophic scar; Z67.10 Type A blood, Rh positive
CPT/HCPCS: 36415; 59050; 59514; 85025; 86850; 86900; 86901; J0131; J0690; J1100; J1885; J2274; J2405